=== PATIENT | male | born 1980 | race Two or more races ===

== ENCOUNTER 2020-12-09 11:23 | Emergency (ER) | payer MEDICAID, SELFPAY ==
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
[2020-12-09 11:33] VITALS: BP 132/74; PULSE 78; RESP 18; TEMP 36.5; O2SAT 99; BMI 24.4
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
[2020-12-09] MEDS: Lidocaine 4 % Patch ADH..PATCH 1 PATCH TRANSDERMA (12:25)
[2020-12-09] MEDS: Ketorolac Tromethamine 60 MG/2 ML VIAL IM (12:26)
[2020-12-09] MEDS: Cyclobenzaprine HCl 10 MG TABLET PO (12:26)
== END 2020-12-09 12:50 | disposition home or self-care (01) ==
PROVIDERS: Emergency Provider Emergency Medicine; PCP Internal Medicine
DX: S19.9XXA Unspecified injury of neck, initial encounter (principal); J34.89 Other specified disorders of nose and nasal sinuses; M25.512 Pain in left shoulder; M25.511 Pain in right shoulder; F12.90 Cannabis use, unspecified, uncomplicated; V86.59XA Driver of other special all-terrain or other off-road motor vehicle injured in nontraffic accident, initial encounter; Y93.9 Activity, unspecified; Y92.410 Unspecified street and highway as the place of occurrence of the external cause; Y99.9 Unspecified external cause status; Z79.899 Other long term (current) drug therapy
CPT/HCPCS: 73030; 96372; 99284; J1885

== ENCOUNTER 2022-06-13 17:09 | Emergency (ER) | payer MEDICAID, SELFPAY ==
--- NOTE | ~2022-06-13 | XR_ITS ---
EXAMINATION: XR KNEE, LEFT CLINICAL INFORMATION: Injury. COMPARISON: None TECHNIQUE: 4 views. of the left knee. FINDINGS: Bones and soft tissues are normal. No fracture or joint effusion. Alignment is anatomic. Joint spaces are well maintained. No abnormal soft tissue calcification. XR/XR knee LT 2V IMPRESSION: Normal left knee.
--- NOTE | ~2022-06-13 | XR_ITS ---
EXAMINATION: XR KNEE, RIGHT CLINICAL INFORMATION: Injury. COMPARISON: None TECHNIQUE: Four views of the right knee. FINDINGS: Bones and soft tissues are normal. No fracture or joint effusion. Alignment is anatomic. Joint spaces are well maintained. No abnormal soft tissue calcification. XR/XR knee RT 2V IMPRESSION: Normal right knee.
[2022-06-13 17:14] VITALS: BP 122/63; PULSE 77; RESP 18; TEMP 36.6; O2SAT 99; BMI 23.7
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
[2022-06-13] MEDS: Ibuprofen 600 MG TABLET PO (18:36)
[2022-06-13] MEDS: predniSONE 20 MG TABLET 60 MG PO (18:36)
== END 2022-06-13 18:40 | disposition home or self-care (01) ==
PROVIDERS: Emergency Provider Internal Medicine; PCP Internal Medicine
DX: M17.0 Bilateral primary osteoarthritis of knee (principal); M25.562 Pain in left knee; M25.561 Pain in right knee
CPT/HCPCS: 73560; 99283

== ENCOUNTER 2022-06-22 10:16 | Outpatient (REF) | payer MEDICAID, SELFPAY ==
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
== END 2022-06-22 10:17 | disposition home or self-care (01) ==
LOC: HO.XRAY 10:16
PROVIDERS: PCP Internal Medicine; Visit Provider Registered Nurse
DX: M25.562 Pain in left knee (principal); M25.561 Pain in right knee
CPT/HCPCS: 73590

== ENCOUNTER 2022-07-01 13:45 | Emergency (ER) | payer MEDICAID, SELFPAY ==
--- NOTE | ~2022-07-01 | XR_ITS ---
EXAMINATION: XR KNEE, LEFT CLINICAL INFORMATION: Pain COMPARISON: June 13, 2022 TECHNIQUE: Four views of the left knee. FINDINGS: There is no evidence of acute fracture or dislocation of the left knee. There appears to be a small effusion present. Joint spaces are maintained. There is minor spurring undersurface of the patella. XR/XR knee LT 4V IMPRESSION: No significant bony abnormality of the left knee identified. Small effusion.
[2022-07-01 13:56] VITALS: BP 122/57; PULSE 100; RESP 19; TEMP 36.1; O2SAT 100; BMI 25.4
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
== END 2022-07-01 16:19 | disposition home or self-care (01) ==
PROVIDERS: Emergency Provider Emergency Medicine; PCP Internal Medicine
DX: S83.92XA Sprain of unspecified site of left knee, initial encounter (principal); W01.0XXA Fall on same level from slipping, tripping and stumbling without subsequent striking against object, initial encounter; Y93.9 Activity, unspecified; Y92.9 Unspecified place or not applicable; Y99.9 Unspecified external cause status
CPT/HCPCS: 73564; 99282; 99283

== ENCOUNTER 2022-07-05 12:40 | Outpatient (REF) | payer MEDICAID, SELFPAY ==
--- NOTE | ~2022-07-05 | XR_ITS ---
EXAMINATION: PRE-MRI ORBITS CLINICAL INFORMATION: History of foreign body in eyes COMPARISON: None TECHNIQUE: 3 views of the orbits FINDINGS: There is no visible radiopaque foreign body seen in the orbits. The paranasal sinuses and measures 11 mm and clear. The maxillofacial and visualized skull appears unremarkable. XR/XR pre mri screening IMPRESSION: No radiopaque foreign body seen in the orbits. The paranasal sinuses are clear.
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
== END 2022-07-05 12:41 | disposition home or self-care (01) ==
LOC: HO.MRI 12:40
PROVIDERS: Visit Provider Registered Nurse
DX: M25.562 Pain in left knee (principal); M25.561 Pain in right knee
CPT/HCPCS: 73721

== ENCOUNTER 2022-07-19 09:46 | Outpatient (REF) | payer MEDICAID, SELFPAY ==
--- NOTE | ~2022-07-19 | XR_ITS ---
EXAMINATION: XR KNEE AP STANDING XR KNEE, RIGHT XR KNEE, LEFT CLINICAL INFORMATION: Knee pain COMPARISON: 07/11/2012 TECHNIQUE: AP bilateral standing view of the knees was obtained. [place] view of each knee. FINDINGS: Right knee: No fracture or subluxation. Compartmental joint spaces are maintained. The soft tissues are unremarkable. Left knee: No fracture or subluxation. Compartmental joint spaces are maintained. The soft tissues are unremarkable. XR/XR knee LT 1V IMPRESSION: Normal knees.
--- NOTE | ~2022-07-19 | XR_ITS ---
EXAMINATION: XR KNEE AP STANDING XR KNEE, RIGHT XR KNEE, LEFT CLINICAL INFORMATION: Knee pain COMPARISON: 07/11/2012 TECHNIQUE: AP bilateral standing view of the knees was obtained. [place] view of each knee. FINDINGS: Right knee: No fracture or subluxation. Compartmental joint spaces are maintained. The soft tissues are unremarkable. Left knee: No fracture or subluxation. Compartmental joint spaces are maintained. The soft tissues are unremarkable. XR/XR knee RT 1V IMPRESSION: Normal knees.
--- NOTE | ~2022-07-19 | XR_ITS ---
EXAMINATION: XR KNEE AP STANDING XR KNEE, RIGHT XR KNEE, LEFT CLINICAL INFORMATION: Knee pain COMPARISON: 07/11/2012 TECHNIQUE: AP bilateral standing view of the knees was obtained. [place] view of each knee. FINDINGS: Right knee: No fracture or subluxation. Compartmental joint spaces are maintained. The soft tissues are unremarkable. Left knee: No fracture or subluxation. Compartmental joint spaces are maintained. The soft tissues are unremarkable. XR/XR knee standing BI IMPRESSION: Normal knees.
== END 2022-07-19 09:47 | disposition home or self-care (01) ==
LOC: HO.HOSX 09:46
PROVIDERS: Visit Provider Physician Assistant
DX: S83.241A Other tear of medial meniscus, current injury, right knee, initial encounter (principal); S83.242A Other tear of medial meniscus, current injury, left knee, initial encounter
CPT/HCPCS: 73560; 73565; 99202

== ENCOUNTER 2022-08-10 07:56 | Day surgery (SDC) | payer MEDICAID, SELFPAY ==
--- NOTE | 2022-08-09 11:05 | HO.ANESPROP2 ---
Documented by User: Toyin Mayberry NP 08/09/22 11:06 HPI - Anesthesia Eval Consult details Narrative: 41yo M for Left Knee Arthroscopy [facility] Active Problems Active Problems: All Active Problems (Updated 08/04/22 @ 13:34 by Amy Weber, JAYCE) Tear of medial meniscus of right knee (Acute) Tear of medial meniscus of left knee (Acute) Past Medical History Medical History Anxiety Degenerative arthritis of knee, bilateral Migraine Surgical History Surgical History Hx of hernia repair Surgical history unknown Social History Social History Alcohol intake: current Alcohol intake frequency: holidays/special occasions only Patient Tobacco Use Status: Never used Tobacco Use of substances other than those prescribed or required for medical reasons: Yes Substance Use Type: Marijuana Substance Use Frequency: Daily Are you DNR?: No Advance Directives: No Advance Directives Information Provided: Yes Current occupational status: employed Current occupation: [employer] Allergies Allergy/AdvReac Type Severity Reaction Status Date / Time No Known Allergies Allergy Verified 08/10/22 08:28 Exam Exam Date and Time: August 09, [id number] Assessment and Plan Assessment Anesthesia Assessment: Chart Reviewed Documented by User: Mike Geiger MD 08/10/22 08:21 [facility] Past Medical History Medical History Anxiety Degenerative arthritis of knee, bilateral Migraine Family History Family history of problems with anesthesia: No Surgical History Surgical History Hx of hernia repair Surgical history unknown History of Problems with Anesthesia: No Social History Social History Alcohol intake: current Alcohol intake frequency: holidays/special occasions only Patient Tobacco Use Status: Never used Tobacco Use of substances other than those prescribed or required for medical reasons: Yes Substance Use Type: Marijuana Substance Use Frequency: Daily Are you DNR?: No Advance Directives: No Advance Directives Information Provided: Yes Current occupational status: employed 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 Allergies Allergy/AdvReac Type Severity Reaction Status Date / Time No Known Allergies Allergy Verified 08/10/22 08:28 Exam Airway Mallampati Class: II Neck ROM: Full Heart: rrr Lungs: cta Assessment and Plan Assessment Anesthesia Assessment: Anesthesia Plan Discussed Final Anesthetic Review Family History of Problems with Anesthesia: No History of Problems with Anesthesia: No NPO: Yes ASA Class: II Final Preanesthetic Review: No Changes in Pt Med Stat, Meds/Allgs Chart Reviewed, Consent Obtained/Reviewed and Anes Risks/Benef Reviewed Patient Risk: Low Procedure Risk: Low Anesthetic Plan Anesthetic Plan: GA Disposition: Standard PACU Documented by User: Julia Dupree MD 08/10/22 09:18 [facility] Past Medical History Medical History Anxiety Degenerative arthritis of knee, bilateral Migraine Surgical History Surgical History Hx of hernia repair Surgical history unknown Social History Social History Alcohol intake: current Alcohol intake frequency: holidays/special occasions only Patient Tobacco Use Status: Never used Tobacco Use of substances other than those prescribed or required for medical reasons: Yes Substance Use Type: Marijuana Substance Use Frequency: Daily Are you DNR?: No Advance Directives: No Advance Directives Information Provided: Yes Current occupational status: employed 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
[2022-08-10] VITALS (7 sets, daily range): BP systolic 111–140; BP diastolic 62–82; PULSE 63–88; RESP 14–18; TEMP 36.1–36.6; O2SAT 98–100; BMI 24.4
[2022-08-10] MEDS: Lactated Ringers 1,000 ML 100 ML IVCONT (08:26)
--- NOTE | 2022-08-10 09:38 | MHC.SHP ---
Pre-Procedural Eval Section A Date of Service: 08/10/22 The patient is an INPATIENT: No Changes since office visit: No Cold of Flu in the past 2 weeks, No New Medical Problems, No Changes in Medication and No Patient answered all questions The History & Physical has been completed within 30 days and I have reviewed it.: Yes Section B Chief Complaint: Other tear of medial meniscus, current injury, lef Allergies: Allergies Allergy/AdvReac Type Severity Reaction Status Date / Time No Known Allergies Allergy Verified 08/10/22 08:28 Plan I have reviewed the history and physical and performed a pertinent physical examination on my patient. No changes have occurred unless specified. Time Spent With Patient Time: Total time managing care of this patient today ____ minutes.
--- NOTE | 2022-08-10 10:07 | PM.OP ---
Brief Operative Note Date of Service: 08/10/22 Pre-op diagnosis: Left knee MMT Post-op diagnosis: same Procedure: Left knee partial medial meniscectomy Implants: none Surgeon: Tj Casillas MD Anesthesia: GETA and local Was an Postal Service Mail Processor used for this Procedure?: No Estimated blood loss (mL): 0 Tourniquet time (min): 14 IV fluids (mL): 500 Pathology: none sent Condition: stable Disposition: PACU
[2022-08-10] MEDS: oxyCODONE HCl Immed Release 5 MG TABLET PO (10:44)
--- NOTE | 2022-08-12 15:40 | W.PM.OPN ---
Operative Note Operative Note Date of Service: 08/10/22 Narrative: Date of Service: 08/10/22 Pre-op diagnosis: Left knee MMT Post-op diagnosis: same Procedure: Left knee partial medial meniscectomy Implants: none Surgeon: Tj Casillas MD Anesthesia: GETA and local Was an Cloth Printing Utility Worker used for this Procedure?: No Estimated blood loss (mL): 0 Tourniquet time (min): 14 IV fluids (mL): 500 Pathology: none sent Condition: stable Disposition: PACU Patient was brought to the operating room placed supine on the arthroscopic table and prepped and draped in standard sterile fashion. A time-out was called to identify proper site proper procedure proper surgeon and IV antibiotics per weight were administered. I began by exsanguinating the limb and insufflating tourniquet to 300 mm Hg. Then made a standard anterolateral stab incision. The knee was insufflated with water and 30 degree arthroscope was placed. There was grade 1 fibrillations of the patella but overall suprapatellar pouch was plane and the gutters were clean. I descended into the medial compartment where I made my medial portal under direct visualization. There was obvious of complex tear of the body and posterior horn of the medial meniscus. The root was intact and there was grade 1 changes scattered throughout the medial compartment. I used a combination of biter shaver and cautery to remove unstable portions of the meniscus. Approximately 40% meniscal volume was removed. Once I was happy with this the ACL was examined and found to be intact and the lateral compartment also was without the need for intervention. I then removed all instrumentation and closed the portals with skin glue. 25 mL of 2% Marcaine with epinephrine was injected into the joint and the surrounding soft tissues. Patient was then placed in sterile dressing extubated brought recovery room stable condition. There were no known complications.
== END 2022-08-10 11:44 | disposition home or self-care (01) ==
LOC: HO.SSS 07:57
PROVIDERS: PCP Registered Nurse; Visit Provider Orthopaedic Surgery
PROC: (CPT 29870; principal; 2022-08-10 10:50)
DX: S83.232A Complex tear of medial meniscus, current injury, left knee, initial encounter (principal); M17.0 Bilateral primary osteoarthritis of knee; V17.0XXA Pedal cycle driver injured in collision with fixed or stationary object in nontraffic accident, initial encounter; Y93.55 Activity, bike riding; Y92.9 Unspecified place or not applicable; Y99.8 Other external cause status; Z79.1 Long term (current) use of non-steroidal anti-inflammatories (NSAID); F12.90 Cannabis use, unspecified, uncomplicated
CPT/HCPCS: 29881; J0171; J0690; J1100; J1885; J2250; J2405; J2795; J3010

== ENCOUNTER 2022-08-22 10:00 | Outpatient (RCR) | payer MEDICAID, SELFPAY ==
--- NOTE | 2022-08-19 15:48 | MHC.PT.EP ---
[facility] [place] Office [place] Office [place] Office [address] Ira Abbott [address] [phone] F: [phone] F: [phone] F: [phone] F: [phone] Physical Therapy Plan of Care Date of Evaluation: Date of Surgery: 08/12/22 Diagnosis: L MEDIAL MENISCUS TEAR ON 08/10/22 Assessment: Pt UNDERWENT L KNEE MEDIAL MENISCECTOMY ON 08/12/22. PRESENTS WITH LIMITED L LE ROM AND STRENGTH WITH PAIN AND LIMITED ADLS. GOOD PT CANDIDATE TO ADDRESS THESE ISSUES Frequency and Duration: The patient will be seen 2X/WK X 8 WKS Short Term Goals: 1. INCREASED AWARENESS L KNEE CARE 2. L KNEE ROM 0-120 3. NORMALIZED GT WITHOUT AD Fdc Goals: 1. L KNEE ROM 1-130 2. DECREASED L KNEE PAIN AT LEAST 50% WTH ADLS 3. I HEP WITH DC EX PLAN Treatment Plan: Modalities to reduce pain, spasms and effusion. Manual therapy to restore motion and function. Therapeutic exercise to improve strength and flexibility. Neuromuscular re-education for posture and balance. Therapeutic activities to return to functional activities of daily living. Electronically signed by: JOHN HERRERA PT Please sign and return to therapist. Thank you for your referral.
--- NOTE | 2022-09-13 13:05 | MHC.PT.DC ---
[facility] [place] Office [place] Office [place] Office [address] Ira Abbott [address] [phone] F: [phone] F: [phone] F: [phone] F: [phone] Physical Therapy Discharge Report Diagnosis: L MEDIAL MENISCUS TEAR ON 08/10/22 Date of Surgery: 08/12/22 Date of Evaluation: 08/19/22 Date of Discharge: 09/13/22 Treatments to Date: 2 Cancellations to Date: No Shows to Date: Discharge Status: Patient Elected to Stop Discharge Summary: Pt SEEN FOR INIT EVAL AND 1 FU VISIT. Pt THEN NO SHOWED X 5 SESSIONS. OF NOTE, HAD ORTHO APPT SAME DATE LAST PT SESSION (08/22). WHEN LOOKED AT OFFICE VISIT NOTE, Pt WAS INST TO CONT WITH A FEW MORE SESSION OF PT AND CAN DC CRUTCHES. HE DID NOT COME IN FOR ANY MORE SESSIONS Electronically signed by: JOHN HERRERA PT Please sign and return to therapist. Thank you for your referral.
== END 2022-09-13 13:05 | disposition home or self-care (01) ==
LOC: HO.PT 10:00
PROVIDERS: PCP Internal Medicine; Visit Provider Physician Assistant
DX: S83.242A Other tear of medial meniscus, current injury, left knee, initial encounter (principal)
CPT/HCPCS: 97110; 97116; 97161; 97535

== ENCOUNTER → 2022-08-22 10:50 | Outpatient (BNVA) | payer MEDICAID, SELFPAY | PROVIDERS: PCP Registered Nurse; Visit Provider Physician Assistant ==

== ENCOUNTER 2022-09-27 12:29 | Emergency (ER) | payer MEDICAID, SELFPAY ==
[2022-09-27 12:49] VITALS: BP 113/69; PULSE 97; RESP 18; TEMP 36.8; O2SAT 99; BMI 24.4
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
== END 2022-09-27 13:55 | disposition left against medical advice (07) ==
PROVIDERS: Emergency Provider Emergency Medicine; PCP Internal Medicine
DX: M79.605 Pain in left leg (principal)
CPT/HCPCS: 99281

== ENCOUNTER 2022-09-28 07:46 | Emergency (ER) | payer MEDICAID, SELFPAY ==
--- NOTE | ~2022-09-28 | XR_ITS ---
EXAMINATION: XR TIBIA AND FIBULA, LEFT CLINICAL INFORMATION: Crush injury pain COMPARISON: Left knee radiograph from 07/19/2022 TECHNIQUE: AP and lateral views of the left tibia and fibula were obtained. FINDINGS: No acute visible fracture or dislocation. Joint spaces and alignment are maintained. Mild soft tissue swelling along the lateral aspects of the fibula. XR/XR tibia fibula LT 2V IMPRESSION: 1. No acute visible fracture or dislocation. 2. Mild soft tissue swelling along the lateral aspects of the fibula.
[2022-09-28 07:49] VITALS: BP 126/69; PULSE 90; RESP 18; TEMP 37; O2SAT 97; BMI 24.4
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
== END 2022-09-28 10:09 | disposition home or self-care (01) ==
PROVIDERS: Emergency Provider Student in an Organized Health Care Education/Training Program; PCP Internal Medicine
DX: S80.12XA Contusion of left lower leg, initial encounter (principal); V28.09XA Other motorcycle driver injured in noncollision transport accident in nontraffic accident, initial encounter; Y93.89 Activity, other specified; Y92.9 Unspecified place or not applicable; Y99.9 Unspecified external cause status
CPT/HCPCS: 73590; 99282; 99283

== ENCOUNTER → 2022-10-20 13:04 | Outpatient (BNVA) | payer MEDICAID, SELFPAY | PROVIDERS: PCP Internal Medicine; Visit Provider Physician Assistant | DX: M25.561 Pain in right knee (principal); M17.0 Bilateral primary osteoarthritis of knee; S83.241A Other tear of medial meniscus, current injury, right knee, initial encounter; X58.XXXA Exposure to other specified factors, initial encounter; Y93.9 Activity, unspecified; Y92.9 Unspecified place or not applicable; Y99.8 Other external cause status | CPT/HCPCS: 99212 ==

== ENCOUNTER 2022-11-09 07:42 | Day surgery (SDC) | payer MEDICAID, SELFPAY ==
--- NOTE | 2022-11-08 09:44 | HO.ANESPROP2 ---
Documented by User: Toyin Mayberry NP 11/08/22 09:44 HPI - Anesthesia Eval Consult details Narrative: 41yo M for Right Knee Arthroscopy PMFSH Active Problems Active Problems: All Active Problems (Updated 10/01/22 @ 00:08 by Emir Monterroso) Tear of medial meniscus of right knee (Acute) Tear of medial meniscus of left knee (Acute) Past Medical History Medical History Anxiety Degenerative arthritis of knee, bilateral Migraine Family History Family history of problems with anesthesia: No Surgical History Surgical History (Updated 11/09/22 @ 08:32 by Mandi Grimm) Hx of arthroscopic knee surgery Hx of hernia repair History of Problems with Anesthesia: No Social History Social History Alcohol intake: current Alcohol intake frequency: does not drink Patient Tobacco Use Status: Never used Tobacco Use of substances other than those prescribed or required for medical reasons: Yes Substance Use Type: Marijuana Substance Use Frequency: Daily Are you DNR?: No Advance Directives: No Advance Directives Information Provided: Yes Current occupational status: employed Current occupation: [employer] Allergies Allergy/AdvReac Type Severity Reaction Status Date / Time No Known Allergies Allergy Verified 11/09/22 08:26 Exam Exam Date and Time: November 08, [id number] Assessment and Plan Assessment Anesthesia Assessment: Chart Reviewed Final Anesthetic Review Family History of Problems with Anesthesia: No History of Problems with Anesthesia: No Documented by User: Apolinar Aguirre MD 11/09/22 15:01 PMF Past Medical History Medical History Anxiety Degenerative arthritis of knee, bilateral Migraine Functional capacity: independent ambulation Surgical History Surgical History (Updated 11/09/22 @ 08:32 by Mandi Grimm) Hx of arthroscopic knee surgery Hx of hernia repair Social History Social History Alcohol intake: current Alcohol intake frequency: does not drink Patient Tobacco Use Status: Never used Tobacco Use of substances other than those prescribed or required for medical reasons: Yes Substance Use Type: Marijuana Substance Use Frequency: Daily Are you DNR?: No Advance Directives: No Advance Directives Information Provided: Yes Current occupational status: employed Current occupation: [employer] Allergies Allergy/AdvReac Type Severity Reaction Status Date / Time No Known Allergies Allergy Verified 11/09/22 08:26 Exam Airway Mallampati Class: III Neck ROM: Full Loose/Missing/Broken Teeth: Yes (upper front tooth chipped , poor dentition ) Assessment and Plan Final Anesthetic Review NPO: Yes ASA Class: II Final Preanesthetic Review: Meds/Allgs Chart Reviewed, Consent Obtained/Reviewed and Anes Risks/Benef Reviewed Patient Risk: Intermediate Procedure Risk: Intermediate Anesthetic Plan Anesthetic Plan: GA and Agree w/ Assess. and Plan Disposition: Standard PACU
[2022-11-09] VITALS (7 sets, daily range): BP systolic 99–110; BP diastolic 45–70; PULSE 57–67; RESP 16–18; TEMP 36.1–36.3; O2SAT 95–99; BMI 25.1
--- NOTE | 2022-11-09 08:55 | MHC.SHP ---
Pre-Procedural Eval Section A Date of Service: 11/09/22 The patient is an INPATIENT: No Changes since office visit: No Cold of Flu in the past 2 weeks, No New Medical Problems, No Changes in Medication and No Patient answered all questions The History & Physical has been completed within 30 days and I have reviewed it.: Yes Section B Chief Complaint: Displaced spiral fracture of shaft of right tibia Allergies: Allergies Allergy/AdvReac Type Severity Reaction Status Date / Time No Known Allergies Allergy Verified 11/09/22 08:26 Plan I have reviewed the history and physical and performed a pertinent physical examination on my patient. No changes have occurred unless specified. Time Spent With Patient Time: Total time managing care of this patient today ____ minutes.
[2022-11-09] MEDS: Lactated Ringers 1,000 ML 100 ML IVCONT (08:56)
--- NOTE | 2022-11-09 14:52 | P.BOP_ITS ---
Brief Operative Note Date of Service: 11/09/22 Pre-op diagnosis: Right knee MMT Post-op diagnosis: same Procedure: Partial MM right knee Surgeon: Tj Casillas MD Anesthesia: GETA and local Was an Specialized Language Instructor used for this Procedure?: No Estimated blood loss (mL): 5 Tourniquet time (min): 16 IV fluids (mL): 500 Pathology: none sent Condition: stable Disposition: PACU
--- NOTE | 2022-11-13 10:11 | P.OP_ITS ---
Operative Note Operative Note Date of Service: 11/13/22 Narrative: Date of Service: 11/09/22 Pre-op diagnosis: Right knee MMT Post-op diagnosis: same Procedure: Partial MM right knee Surgeon: Tj Casillas MD Anesthesia: GETA and local Was an Community Placement Worker used for this Procedure?: No Estimated blood loss (mL): 5 Tourniquet time (min): 16 IV fluids (mL): 500 Pathology: none sent Condition: stable Disposition: PACU Procedure in detail: Patient was brought to the operating room placed supine on the arthroscopic table and prepped and draped in standard sterile fashion. A time-out was called to identify proper site proper procedure proper surgeon and IV antibiotics per weight were administered. I began by exsanguinating the limb and insufflating tourniquet to 300 mm Hg. Then made a standard anterolateral stab incision. The knee was insufflated with water and 30 degree arthroscope was placed. There was grade 1 fibrillations of the patella but overall suprapatellar pouch was plane and the gutters were clean. I descended into the medial compartment where I made my medial portal under direct visualization. There was obvious of complex tear of the body and posterior horn of the medial meniscus. The root was intact and there were grade 1 changes with scattered grade 2 changes throughout the medial compartment. I used a combination of biter shaver and cautery to remove unstable portions of the medial meniscus. Approximately 30% of the meniscal volume was removed. Once I was satisfied with this the ACL was examined and found to be intact and the lateral compartment also was without the need for intervention. I then removed all instrumentation and closed the po rtals with skin glue. 25 mL of 2% Marcaine with epinephrine was injected into the joint and the surrounding soft tissues. Patient was then placed in sterile dressing extubated brought recovery room stable condition. There were no known complications.
== END 2022-11-09 13:10 | disposition home or self-care (01) ==
LOC: HO.SSS 07:42
PROVIDERS: PCP Internal Medicine; Visit Provider Orthopaedic Surgery
PROC: (CPT 29870; principal; 2022-11-09 10:20)
DX: S83.231A Complex tear of medial meniscus, current injury, right knee, initial encounter (principal); X58.XXXA Exposure to other specified factors, initial encounter; Y93.9 Activity, unspecified; Y92.9 Unspecified place or not applicable; Y99.8 Other external cause status; M17.0 Bilateral primary osteoarthritis of knee; G43.909 Migraine, unspecified, not intractable, without status migrainosus; F41.1 Generalized anxiety disorder; F12.90 Cannabis use, unspecified, uncomplicated; Z79.1 Long term (current) use of non-steroidal anti-inflammatories (NSAID); Z79.899 Other long term (current) drug therapy
CPT/HCPCS: 29881; J0171; J0690; J1100; J1170; J2250; J2795

== ENCOUNTER → 2022-11-14 09:40 | Outpatient (BNVA) | payer MEDICAID, SELFPAY | PROVIDERS: PCP Internal Medicine; Visit Provider Physician Assistant | DX: S83.241D Other tear of medial meniscus, current injury, right knee, subsequent encounter (principal) | CPT/HCPCS: 99212 ==

== ENCOUNTER 2022-12-01 12:00 | Outpatient (RCR) | payer MEDICAID, SELFPAY ==
--- NOTE | 2022-11-24 11:55 | MHC.PT.EP ---
[facility] [place] Office [place] [facility] [place] [facility] [address] Ira Abbott [address] [phone] F: [phone] F: [phone] F: [phone] F: [phone] Physical Therapy Plan of Care Date of Evaluation: Date of Surgery: 11/09/22 Diagnosis: R Knee 11/09/22 R medial menisectomy (30% removed per op note) Assessment: 41 y/o male s/p R medial meniscectomy (30% removed) on 11/09/22. Of note, he also underwent L meniscectomy 07/2022. 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 Examination shows decreased R knee AROM 0-2-104, decreased quad strength, decreased LE strength, impaired gait pattern, and pain. Recommend PT 2x/week for 5 weeks (however pt reports 1x/week is better) to address impairments, implement HEP, and optimize functional mobility Frequency and Duration: The patient will be seen 1x/week for 5 weeks Short Term Goals: 3 weeks COmpliant with HEP Improve R knee AROM to 0-125 Pt will ambulate without assistive device. Mcc Goals: 5 weeks I with HEP and self management of sx Pt will demonstrate >4/5 R knee strength to optimize functional mobility Pt will demonstrate step through pattern on stairs Treatment Plan: Modalities to reduce pain, spasms and effusion. Manual therapy to restore motion and function. Therapeutic exercise to improve strength and flexibility. Neuromuscular re-education for posture and balance. Therapeutic activities to return to functional activities of daily living. Electronically signed by: Adriana Landrum PT Please sign and return to therapist. Thank you for your referral.
--- NOTE | 2023-01-12 14:37 | MHC.PT.DC ---
[facility] [place] Office [place] [facility] [place] Office [address] Ira Abbott [address] [phone] F: [phone] F: [phone] F: [phone] F: [phone] Physical Therapy Discharge Report Diagnosis: R Knee 11/09/22 R medial menisectomy (30% removed per op note) Date of Surgery: 11/09/22 Date of Evaluation: 11/24/22 Date of Discharge: 01/12/23 Treatments to Date: 2 Cancellations to Date: 0 No Shows to Date: 2 Discharge Status: Visit Non-compliance Discharge Summary: D/c secondary to noncompliance with scheduling policy and 2 consecutive no show visits. Electronically signed by: Adriana Spain PT Please sign and return to therapist. Thank you for your referral.
== END 2023-01-12 14:37 | disposition home or self-care (01) ==
LOC: HO.PT 12:00
PROVIDERS: PCP Internal Medicine; Visit Provider Orthopaedic Surgery
DX: S83.241D Other tear of medial meniscus, current injury, right knee, subsequent encounter (principal)
CPT/HCPCS: 97110; 97161

== ENCOUNTER 2022-12-15 09:03 | Outpatient (AMB) | payer MEDICAID, SELFPAY ==
[2022-12-15 09:07] VITALS: BMI 21.4
--- NOTE | 2022-12-15 09:07 | A.OFFVIS_ITS ---
Intake Vital Signs 12/15/22 09:07 Height 6 ft Weight 158 lb BMI 21.4 Intake Visit Reasons: Post Op - RT Knee , 11/09/2022 NE Intake Note: Norberto is a 41 year old male who presents today for a post op appointment for his right knee 11/09/22 NE. Patient reports having pain when getting up from a sitting position, using stairs and he states that his right knee locks daily when standing straight. Allergies No Known Allergies Allergy (Verified 12/15/22 09:09) HPI Post Op - RT Knee , 11/09/2022 NE HPI Details 41-year-old male who presents in the office today 5 weeks status post right knee partial medial meniscectomy, which was performed on 11/09/[address] Casillas. The patient reports having pain with getting up from a seated position and using stairs. He claims the right knee is locking daily when he stands up straight. He reports he discontinued participating in physical therapy due to different providers, each telling him something different to do. 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 Slight tenderness to palpation along the medial and lateral joint lines, more so over the medial joint line. NVI. Psych Mental Status: mental status grossly normal Assessment & Plan Assessment & Plan (1) Tear of medial meniscus of right knee: Comment: Right knee partial medial meniscectomy 11/09/2022 NE Code(s): S83.241A - Other tear of medial meniscus, current injury, right knee, initial encounter Plan Mr. Mc is a 41-year-old male who presents in the office today 5 weeks status post right knee partial medial meniscectomy, which was performed on 11/09/[address] Casillas. The patient reports having pain with getting up from a seated position and using stairs. He claims the right knee is locking daily when he stands up straight. He reports he discontinued participating in physical therapy due to different providers, each telling him something different to do. The patient reports he would like to explore more physical therapy offices at this time. He reports he has attended the [facility] facilities and they are not a fit for him. I encouraged him to continue to work with physical therapy. He demonstrates understanding. I sent a new prescription for celebrex 200 mg PO BID and a refill for lidocaine patches Q24H PRN. Follow up will be in 4-6 weeks, or sooner if needed. Medications: New celecoxib (Celebrex) 200 mg PO BID 60 caps 0RF 30 days Refilled lidocaine 4% may leave on for up to 12 hrs 1 patch topical Q24H PRN 10 ea 0RF pain Patient Instructions: Scribed for Rowena Betancourt PA-C by Bee Dubois medical dermatologist, on 12/15/2022 at 9:09 am, EST. Your attestation Coding Level of Care Code Global (02225) Diagnoses Tear of medial meniscus of right knee S83.241A
== END 2022-12-15 09:56 | disposition home or self-care (01) ==
PROVIDERS: PCP Internal Medicine; Visit Provider Physician Assistant
DX: S83.241A Other tear of medial meniscus, current injury, right knee, initial encounter (principal)
CPT/HCPCS: 99024

== ENCOUNTER → 2022-12-15 09:03 | Outpatient (BNVA) | payer MEDICAID, SELFPAY | PROVIDERS: PCP Internal Medicine; Visit Provider Physician Assistant ==

== ENCOUNTER 2023-01-26 13:00 | Outpatient (AMB) | payer MEDICAID, SELFPAY ==
--- NOTE | 2023-01-26 13:08 | A.OFFVIS_ITS ---
Intake Vital Signs 01/26/23 13:10 Height 6 ft Weight 158 lb BMI 21.4 Intake Visit Reasons: Post Op - RT Knee , 11/09/2022 NE Intake Note: Norberto is a 41 year old male who presents today for a post op appointment for his right knee 11/09/22 NE. States he is still having pain same as before surgery. Also states his left knee has started to hurt him possible due to over compensating. Allergies No Known Allergies Allergy (Verified 01/26/23 13:10) HPI Post Op - RT Knee , 11/09/2022 NE HPI Details 42-year-old male who presents in the office today 2 months status post right knee partial medial meniscectomy, which was performed on 11/09/[address] Casillas. The patient reports his pain is the same today as it was prior to surgery. Patient reports pain in the left knee due to over compensation. 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 Slight tenderness to palpation along the medial and lateral joint lines, more so over the medial joint line. NVI. Assessment & Plan Assessment & Plan (1) Tear of medial meniscus of right knee: Comment: Right knee partial medial meniscectomy 11/09/2022 NE Code(s): S83.241A - Other tear of medial meniscus, current injury, right knee, initial encounter Plan Mr. Mc is a 42-year-old male who presents in the office today 2 months status post right knee partial medial meniscectomy, which was performed on 11/09/[address] Casillas. The patient reports his pain is the same today as it was prior to surgery. Patient reports pain in the left knee due to over compensation. I sent into a prescription for Diclofenac to the pharmacy while in the office today. I reinforced the importance of physical therapy. He would like to attend at our facility. He was given a return to work note stating he was out from 11/09/2022 until he returns to light duty. Follow up will be in 4-6 weeks, or sooner if needed. Orders: Orders PT Evaluation and Treatment Today S83.241A - Other tear of medial meniscus, current injury, right knee, initial encounter Medications: New diclofenac sodium 75 mg PO BID PRN 60 tabs 0RF pain Patient Instructions: Scribed for Rowena Betancourt PA-C by Bee Dubois medical detailist, on 01/26/2023 at 1:04 pm, EST. Coding Level of Care Code Global (91044) Diagnoses Tear of medial meniscus of right knee S83.241A
[2023-01-26 13:10] VITALS: BMI 21.4
== END 2023-01-26 14:11 | disposition home or self-care (01) ==
PROVIDERS: PCP Internal Medicine; Visit Provider Physician Assistant
DX: S83.241A Other tear of medial meniscus, current injury, right knee, initial encounter (principal)
CPT/HCPCS: 99024

== ENCOUNTER → 2023-01-26 13:00 | Outpatient (BNVA) | payer MEDICAID, SELFPAY | PROVIDERS: PCP Internal Medicine; Visit Provider Physician Assistant ==

== ENCOUNTER 2023-03-02 10:53 | Outpatient (AMB) | payer MEDICAID, SELFPAY ==
--- NOTE | 2023-03-02 10:55 | MHC.OFFVIS ---
Intake Vital Signs 03/02/23 10:59 Height 6 ft Weight 158 lb BMI 21.4 Intake Visit Reasons: Post Op - RT Knee , 11/09/2022 NE Intake Note: Norberto is a 41 year old male who presents today for a post op appointment for his right knee 11/09/22 NE. Patient states he is doing well, having some discomfort when squatting down when working. No other concerns for today. Allergies No Known Allergies Allergy (Verified 03/02/23 10:56) HPI Post Op - RT Knee , 11/09/2022 NE HPI Details 42-year-old male who presents in the office today 4 months status post right knee partial medial meniscectomy, which was performed on 11/09/[address] Casillas. The patient reports he is doing well. He states he has some discomfort when squatting down while working. He has no other concerns today. 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 No signs of infection. Full ROM. NVI. Assessment & Plan Assessment & Plan (1) Tear of medial meniscus of right knee: Comment: Right knee partial medial meniscectomy 11/09/2022 NE Code(s): S83.241A - Other tear of medial meniscus, current injury, right knee, initial encounter Qualifiers: Encounter type: subsequent encounter Meniscus tear of knee type: unspecified type Tear current or old: unspecified Qualified Code(s): S83.241D - Other tear of medial meniscus, current injury, right knee, subsequent encounter Plan Mr. Mc is a 42-year-old male who presents in the office today 4 months status post right knee partial medial meniscectomy, which was performed on 11/09/[address] Casillas. The patient reports he is doing well. He states he has some discomfort when squatting down while working. He has no other concerns today. The patient will return to normal activities as tolerated. Follow up will be PRN, or sooner if needed. Patient Instructions: Scribed for Rowena Betancourt PA-C by Bee Dubois medical recruiter, on 03/02/2023 at 10:59 am, EST. Coding Level of Care Code Est Pt Level 3 (83363) Diagnoses Tear of medial meniscus of right knee, unspecified tear type, unspecified whether old or current tear, subsequent encounter S83.241D Encounter type: subsequent encounter Meniscus tear of knee type: unspecified type Tear current or old: unspecified
[2023-03-02 10:59] VITALS: BMI 21.4
== END 2023-03-02 11:02 | disposition home or self-care (01) ==
PROVIDERS: PCP Internal Medicine; Visit Provider Physician Assistant
DX: S83.241D Other tear of medial meniscus, current injury, right knee, subsequent encounter (principal)
CPT/HCPCS: 99213

== ENCOUNTER → 2023-03-02 10:53 | Outpatient (BNVA) | payer MEDICAID, SELFPAY | PROVIDERS: PCP Internal Medicine; Visit Provider Physician Assistant | DX: S83.241D Other tear of medial meniscus, current injury, right knee, subsequent encounter (principal) | CPT/HCPCS: 99212 ==

== ENCOUNTER 2024-03-23 07:39 | Emergency (ER) | payer MEDICAID, SELFPAY ==
[2024-03-23 07:42] VITALS: BP 98/61; PULSE 99; RESP 18; TEMP 36.9; O2SAT 100; BMI 23.7
[2024-03-23 07:52] VITALS: BP 113/76; PULSE 93; RESP 18; TEMP 36.6; O2SAT 98
--- NOTE | 2024-03-23 08:06 | ED.LOWEXIN ---
HPI - Extremity Injury (Lower) General Chief Complaint: Extremity Injury, Lower Stated Complaint: l knee pain Time Seen by Provider: 03/23/24 07:46 Source: patient and family (Araceli) Mode of arrival: ambulatory History of Present Illness ED Provider: Dr. Jimmie Guevara HPI Narrative: 43-year-old male with a history bilateral degenerative arthritis of the knees, migraines, anxiety, bilateral meniscal tear status post repair by Dr. Casilals who presents emergency department for evaluation of 3 days of left knee pain. Patient does not recount any injury. 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 He states that the pain has gotten progressively worse to the point where he was not able to straighten his knee secondary to pain. He denied any systemic symptoms such as fever, chills, fatigue. He was seen at an urgent care clinic yesterday and started on methylprednisolone and tizanidine. The patient states that he took 1 dose of the methylprednisolone but did not take the muscle relaxant. He states that today his pain is significantly worse, he was having difficulty straightening his knee therefore he came to the emergency department for evaluation. Related Data Previous Rx's ?Medication ?Instructions ?Recorded ibuprofen 600 mg tablet 600 mg PO Q6H PRN pain #20 tabs 07/01/22 naproxen 500 mg tablet 500 mg PO Q8H PRN pain #90 tabs 11/14/22 celecoxib 200 mg capsule 200 mg PO BID #60 caps 01/23/23 diclofenac sodium 75 mg 75 mg PO BID PRN pain #60 tabs 01/26/23 tablet,delayed release oxycodone 5 mg tablet 5 mg PO Q6H PRN pain #10 tabs 03/23/24 Allergies Allergy/AdvReac Type Severity Reaction Status Date / Time No Known Allergies Allergy Verified 03/23/24 07:44 Review of Systems Review of Systems: Yes all other systems are reviewed and are negative PMFSH Past Medical History Medical History Anxiety Degenerative arthritis of knee, bilateral Migraine Surgical History Hx of arthroscopic knee surgery Hx of hernia repair Social History Social History Alcohol intake: current Alcohol intake frequency: does not drink Patient Tobacco Use Status: Never used Tobacco Substance Use Type: Marijuana Advance Directives: No Advance Directives Information Provided: Yes Current occupational status: employed 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 Lower extremity exam: Patient keeps his left knee flex and his right leg is straight lying on the stretcher. Patient has no increased warmth, erythema or joint effusion of either knee. The patient has difficulty actively straight needs knee but I am able to passively straighten in his left knee to 180 degrees. The patient has no increased pain with lateral or medial stressor of the knee. Negative draw sign. Patient has no significant tenderness palpation over the medial lateral collateral ligaments. Medical Decision Making Medical Decision Making MDM Narrative: 43-year-old male with a history of bilateral degenerative arthritis both knees, bilateral meniscal repair, migraines who presents emergency department for evaluation of 3 days of left knee pain which is gotten progressively worse to the point where he was not able to straighten his knee today. Patient does not recount any injury or trauma. He denied any systemic symptoms. He was seen yesterday at an urgent care clinic and started on methylprednisolone and tizanidine with no relief his pain. Physical examination did reveal limited active range of motion of his left knee secondary to pain but full passive range of motion with no significant pain with mediolateral stressor negative drawer sign. Differential diagnosis: ?Includes but is not limited to left knee strain/sprain, inflammatory arthritis, septic arthritis, meniscal tear Course: Patient's physical examination at this time did not reveal any specific findings to suggest infectious process. I suspect that the patient injured his knee several days ago now has an inflammatory process. Patient was advised to continue taking his methylprednisolone and tizanidine. He was given Tylenol 975 mg and oxycodone 10 mg orally here in the emergency department for his pain. He was placed in a knee immobilizer and given crutches. He was advised to use these for 4 days. He was advised to ice his knee for 15 minutes 4 to 6 times a day for the next several days. Patient was advised to take Tylenol for his pain and for pain not relieved by Tylenol, methylprednisolone and tizanidine he was advised to take oxycodone 5 mg every 6 hours as needed. He was given printed and verbal instructions and discharged home. He was given a work note and advised to follow-up with Dr. Casillas for re-evaluation. Admission/Observation Consideration of admission/observation: Escalation of care including admission/observation considered (No) Independent Historian Clinical information obtained from an independent historian. History obtained from or confirmed by: Spouse External Record Review External record reviewed: Office record and Other ([place] patient prescription monitoring program) Prescription Management I considered prescription management with: Other (Pain medications-oxycodone) Discharge Plan Discharge Clinical Impression: Left knee sprain, Acute pain of left knee Patient Disposition: Home, Self-Care Instructions: Knee Sprain (ED) Additional Instructions: At this time I do not think that you have an infection of your knee joint. Your symptoms are more consistent with a sprain of the ligaments of your knee. Wear the knee brace for 4 days, use the crutches to help relieve with a weight on your left knee. Apply ice for 15 minutes 4 to 6 times a day for the next 3 days to help reduce the swelling and pain in your knee. Continue taking the methylprednisolone as prescribed by the urgent care. While your taking this medication do not take any other over the counter nonsteroidal anti-inflammatory drugs such as Motrin, Advil, Aleve, ibuprofen, naproxen. Take the muscle relaxant, tizanidine once at night to help relieve the pain and spasm. Take Tylenol (acetaminophen) 500 mg pills, 2 pills every 6 hours as needed for pain. For pain not relieved by the above medications, take Tylenol take oxycodone 5 mg pills, 1 pill every 6 hours as needed for pain. Do not drive or work while taking this medication since they can cause sleepiness. Oxycodone is a narcotic medication that can be addicting. If you are concerned about addiction you can ask the pharmacist for less pills or do not get this prescription filled. Follow-up with Dr. Casillas in 1-2 weeks if your pain is not better. Please return to the emergency department if your symptoms get worse or if you develop any symptoms that are concerning to you. Please see the work note Prescriptions: New oxycodone 5 mg tablet 5 mg PO Q6H PRN (Reason: pain) Qty: 10 0RF Rx Instructions: Patient may request partial refill; Partial Fill upon patient request. No Action celecoxib 200 mg capsule 200 mg PO BID Qty: 60 0RF ibuprofen 600 mg tablet 600 mg PO Q6H PRN (Reason: pain) Qty: 20 0RF diclofenac sodium 75 mg tablet,delayed release (DR/EC) 75 mg PO BID PRN (Reason: pain) Qty: 60 0RF naproxen 500 mg tablet 500 mg PO Q8H PRN (Reason: pain) Qty: 90 0RF Referrals: Tj Casillas MD [Physician] - 2 weeks (Left knee pain, difficulty straightening of the need x3 days, suspect knee sprain-same knee that had a meniscal tear repaired in the past) Stand Alone Forms: Work/School Release Print Language: Barb[place]
[2024-03-23] MEDS: oxyCODONE HCl Immed Release 5 MG TABLET 10 MG PO (08:14)
[2024-03-23] MEDS: Acetaminophen 325 MG TABLET 975 MG PO (08:14)
== END 2024-03-23 08:24 | disposition home or self-care (01) ==
PROVIDERS: Emergency Provider Emergency Medicine Emergency Medical Services; PCP Internal Medicine
DX: M25.562 Pain in left knee (principal); S83.92XA Sprain of unspecified site of left knee, initial encounter; X58.XXXA Exposure to other specified factors, initial encounter; Y93.9 Activity, unspecified; Y92.9 Unspecified place or not applicable; Y99.9 Unspecified external cause status
CPT/HCPCS: 99283

== ENCOUNTER 2024-03-27 07:36 | Emergency (ER) | payer MEDICAID, SELFPAY ==
--- NOTE | ~2024-03-27 | CT_ITS ---
EXAMINATION: CT LUMBAR SPINE WITHOUT CONTRAST CLINICAL INFORMATION: Worsening low back pain COMPARISON: None available. TECHNIQUE: Axial sections performed in bone and soft tissue windows without IV contrast enhancement. Sagittal and coronal reconstructions performed. This CT examination was performed using dose optimization techniques as appropriate, variously including the following: *Automated exposure control *Adjustment of mA and/or kV according to patient size (this includes techniques or standardized protocols for targeted exams where dose is matched to indication/reason for exam; i.e. extremities or head) *Use of iterative reconstruction technique DLP; 370 mGy-cm FINDINGS: No CT evidence for acute lumbar compression fracture. Disc spaces appear to be maintained. Minimal spondylitic change. Transverse and spinous processes intact. Small sclerotic foci of the sacrum likely related to small bone islands. There is mild facet arthrosis. Nephrolith of the left kidney measuring 1400 Hounsfield units and 11 mm maximal dimension. There is disc bulging at the L4-5 level with evidence of contact on the left L4 nerve root. Minimal disc bulge at L5-S1 level without significant central stenosis. CT/CT lumbar spine wo IV con IMPRESSION: No acute lumbar compression fracture. Minimal spondylitic change. Mild facet arthrosis. Disc bulge at the L4-5 level with some contact on the left L4 nerve root. Normal disc bulge at the L5-S1 level without significant stenosis. MR examination is outpatient may be helpful toward further clarification. Nonobstructing stone of the left kidney with dimensions as noted above. Other incidental findings as described. Electronically signed by: Bret Andre MD 03/27/2024 09:24 AM EDT
[2024-03-27 07:48] VITALS: BP 109/64; PULSE 70; RESP 16; TEMP 37; O2SAT 98; BMI 23.7
--- NOTE | 2024-03-27 08:13 | ED_ITS ---
HPI - General Adult General Chief complaint: Extremity Problem Stated complaint: lower back pain into leg Time Seen by Provider: 03/27/24 08:13 Source: patient Mode of arrival: wheelchair Limitations: no limitations History of Present Illness ED Provider: Camille Collins PA-C HPI narrative: Patient is a 43 year old assigned male at with a history of bilateral meniscus tears presenting to the emergency department today with continued left knee pain and new low back pain. Patient states that he has had pain in his left knee since 03/23/2024. Patient states that he was seen for that and placed in an immobilizer and given crutches. Patient states that he now has left sided low back pain. Patient states that he cannot straighten his left knee or his low back without having severe pain. Patient states that for a brief moment the pain extended into his right upper leg as well. Patient states that the orthopedic office told him they can't get him in until April. Patient denies any dizziness, lightheadedness, abdominal pain, nausea, vomiting, fever, chills, blurry vision, double vision, loss of vision, chest pain, difficulty breathing, shortness of breath, night sweats, pain with urination, increased urinary frequency, increased urinary urgency, blood in his urine or stool, syncope or a near syncopal episode, recent trauma or falls, bowel incontinence, bladder incontinence, or any other complaints at this time. Relieving factors: none Exacerbating factors: none Treatments prior to arrival: none Related Data Previous Rx's ?Medication ?Instructions ?Recorded ibuprofen 600 mg tablet 600 mg PO Q6H PRN pain #20 tabs 07/01/22 naproxen 500 mg tablet 500 mg PO Q8H PRN pain #90 tabs 11/14/22 celecoxib 200 mg capsule 200 mg PO BID #60 caps 01/23/23 diclofenac sodium 75 mg 75 mg PO BID PRN pain #60 tabs 01/26/23 tablet,delayed release oxycodone 5 mg tablet 5 mg PO Q6H PRN pain #10 tabs 03/23/24 diazepam 5 mg tablet (Valium) 5 mg PO Q8H PRN breakthrough pain 03/27/24 #3 tabs prednisone 20 mg tablet See Rx Instructions .Route 03/27/24 .COMPLEX 12 days #26 tabs Allergies Allergy/AdvReac Type Severity Reaction Status Date / Time No Known Allergies Allergy Verified 03/27/24 07:51 Review of Systems 2 Constitutional: Constitutional: Reports no additional constitutional complaints, Denies chills, Denies fever(s) and Denies night sweats Eyes: Eyes: Reports no additional eye complaints, Denies blurry vision, Denies change in vision, Denies diplopia, Denies eye discharge, Denies loss of vision and Denies eye pain ENT: Denies dizziness Cardiovascular: Cardiovascular: Reports no additional cardiovascular complaints, Denies chest pain, Denies lightheadedness, Denies Loss of Consciousness and Denies dyspnea Respiratory: Respiratory: Reports no additional respiratory complaints and Denies dyspnea Gastrointestinal: Gastrointestinal: Reports no additional gastrointestinal complaints, Denies abdominal pain, Denies melena, Denies hematochezia, Denies change in bowel habits and Denies change in stool character Genitourinary: Genitourinary: Reports no additional male genitourinary complaints, Denies hematuria, Denies oliguria, Denies difficulty urinating, Denies dysuria, Denies urinary frequency, Denies urinary hesitancy, Denies urinary incontinence and Denies urinary urgency Musculoskeletal: Musculoskeletal: Reports no additional musculoskeletal complaints, Denies numbness and Denies tingling Comments: left knee pain low back pain Neurologic: Denies dizziness, Denies loss of vision, Denies numbness and Denies tingling Psychiatric: Psychiatric: Reports no additional psychiatric complaints Endocrine: Endocrine: Reports no additional endocrine complaints Hematologic/Lymphatic: Hematologic/Lymphatic: Reports no additional hematologic/lymphatic complaints Allergic/Immunologic: Allergic/Immunologic: Reports no additional allergic/immunologic complaints [facility] Past Medical History Attestation statement: The following information was validated with the patient. 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 Physical Exam ED Vital Signs: Vital Signs - 24 hr 03/27/24 07:48 03/27/24 08:46 03/27/24 09:45 Temperature 98.6 F 98 F Pulse Rate 70 58 58 Respiratory Rate 16 12 16 Blood Pressure 109/64 117/67 124/70 Pulse Oximetry 98 99 99 Oxygen Delivery Method Room Air Room Air Room Air 03/27/24 09:50 Temperature 98 F Pulse Rate 58 Respiratory Rate 16 Blood Pressure 124/70 Pulse Oximetry 99 Oxygen Delivery Method Room Air BMI result Body Mass Index 23.7 Const General: cooperative, no acute distress, alert and awake Nutritional Appearance: well nourished Orientation/consciousness: patient oriented x3 Limitations: no limitations HENMT Head: Yes normal to inspection and Yes atraumatic Ears: hearing grossly normal bilaterally and external ears normal General nose exam: Normal external nose present, no nasal discharge noted and no epistaxis Face and sinus: Yes normal facial exam, No abrasion and No laceration Mouth: Normal oral and palatal mucosa present, no drooling and no muffled voice Eyes General: appearance normal, both eyes and all related structures Periorbital: periorbital findings normal Eyelids: Yes eyelids normal Conjunctivae: conjunctivae normal Pupils: Equal, round and reactive pupils present EOM: EOMs intact bilaterally Neck Neck: Yes normal visual inspection, Yes full ROM and Yes no lymphadenopathy Chest Chest palpation & inspection: normal inspection of the chest Resp Effort & Inspection: normal respiratory effort and able to speak in complete sentences GI Inspection: Yes normal to inspection Back/Spine/Pelvis Other: patient has pain with the straightening of the low back Neuro General: patient oriented x3 and moves all extremities Cranial nerves: Yes Equal, round and reactive pupils present Cognition (Neuro): normal cognition Extrem Other: patient unable to tolerate an appropriate left knee exam as all ROM is painful General: Yes normal to inspection and Yes capillary refill normal Psych Appearance: grossly normal Mental Status: mental status grossly normal Affect: normal affect Attitude: cooperative Thought process: Normal thought process present Thought content: Normal thought content present Insight: Good insight present (Psych) Medications Administered Discontinued Medications Generic Name Dose Route Start Last Admin Trade Name Freq PRN Reason Stop Dose Admin Diazepam 5 mg 03/27/24 08:20 03/27/24 08:45 Diazepam 10 Mg/2 Ml Cartridge IVPUSH 03/27/24 08:21 5 mg STAT STA Administration Methylprednisolone Sodium Succinate 60 mg 03/27/24 08:20 03/27/24 08:45 Methylprednisolone Sod Succ 125 Mg/2 Ml Vial IVPUSH 03/27/24 08:21 60 mg ONCE ONE Administration Medical Decision Making Medical Decision Making [facility] Narrative: Patient is a 43 year old assigned male at with a history of bilateral meniscus tears presenting to the emergency department today with continued left knee pain and new low back pain. Patient's physical exam was as noted in the physical exam portion of this note. Patient's blood work was unremarkable. Patient's lumbar CT showed a bulging lumbar disc. I explained my physical exam findings as well as all test results to the patient. I answered all questions asked by the patient. Patient received IV Valium and solu-medrol which, upon re- evaluation, he stated it helped his pain. I stressed the importance of the patient taking his medication as directed (either prescribed or as the over the counter packaging recommends). I stressed the importance of the patient following up with his primary care provider, an soil fertility specialist (for his left knee), and a information assurance specialist (for his bulging disc). I stressed the importance of the patient returning to the emergency department immediately if his symptoms were to worsen or if he were to develop any dizziness, shortness of breath, difficulty breathing, chest pain, blurry vision, loss of vision, nausea, vomiting, abdominal pain, fever, chills, back pain, or any other complaints. Patient verbalized agreement and understanding with this treatment plan and discharge. Differential Diagnosis Differential Diagnoses: The differential diagnosis associated with the presentation includes Bulging disc Left knee injury Left knee sprain Admission/Observation Consideration of admission/observation: Escalation of care including admission/observation considered Patient would have been admitted to the hospital had his work up had any findings where hospital admission was appropriate and his clinical presentation warranted hospital admission. Lab Data [facility] Lab Attestation statement: I reviewed the patient's lab results. My interpretation of these results are in the MDM Rationale portion of this note. 03/27/24 08:26 03/27/24 08:26 Labs: Lab Results 03/27/24 Range/Units 08:26 WBC 9.4 (4.8-10.8) X10*3/uL RBC 4.73 (4.60-5.80) X10*6/uL Hgb 14.7 (14.0-18.0) g/dl Hct 42.1 (42.0-52.0) % MCV 89.0 (80.0-98.0) fL MCH 31.1 (27.0-33.0) pg MCHC 34.9 (31.0-36.0) g/dl RDW 11.9 (11.0-16.0) % Plt Count 294 (160-400) X10*3/uL MPV 8.6 L (9.4-12.4) fL Immature Gran % (Auto) 0.5 H (0.0-0.4) % Neut % (Auto) 65.9 (45-73) % Lymph % (Auto) 23.0 (20-40) % [place] % (Auto) 8.9 (2-11) % Eos % (Auto) 1.4 (0-4) % Baso % (Auto) 0.3 (0-2) % Lymph # (Auto) 2.2 (1.2-4.9) X10*3/uL [place] # (Auto) 0.8 (0.1-1.2) X10*3/uL Eos # (Auto) 0.1 (0.0-0.4) X10*3/uL Baso # (Auto) 0.0 (0.0-0.2) X10*3/uL Abs Immat Gran (auto) 0.05 H (0.00-0.03) X10*3/uL Absolute Neuts (auto) 6.2 (2.0-8.3) x10*3/uL Absolute Nucleated RBC 0.000 (0.0-0.012) X10*3/uL Nucleated RBC % (auto) 0.0 (0.0-0.2) /100WBC Sodium 138 (135-145) mmol/L Potassium 3.9 (3.3-5.1) mmol/L Chloride 103 (96-108) mmol/L Carbon Dioxide 28 (22-29) mmol/L Anion Gap 11 L (12-20) BUN 17 H (9-16) mg/dL Creatinine 0.94 (0.5-1.4) mg/dL Estim Creat Clear Calc 110.0 Estimated GFR > 60 Random Glucose 86 (60-115) mg/dL Calcium 9.1 (8.4-10.2) mg/dL Total Bilirubin 0.4 (0.0-1.0) mg/dL AST 20 (5-37) U/L ALT 18 (0-40) U/L Alkaline Phosphatase 58 (39-117) U/L Total Protein 7.1 (6.5-8.0) g/dL Albumin 4.3 (3.5-5.0) g/dL Independent Interpretation I performed an independent interpretation of an: CT Scan Interpretation: My interpretation is in agreement with the radiologist's impression of this imaging study. L EXAMINATION: CT LUMBAR SPINE WITHOUT CONTRAST CLINICAL INFORMATION: Worsening low back pain COMPARISON: None available. TECHNIQUE: Axial sections performed in bone and soft tissue windows without IV contrast enhancement. Sagittal and coronal reconstructions performed. This CT examination was performed using dose optimization techniques as appropriate, variously including the following: *Automated exposure control *Adjustment of mA and/or kV according to patient size (this includes techniques or standardized protocols for targeted exams where dose is matched to indication/reason for exam; i.e. extremities or head) *Use of iterative reconstruction technique DLP; 370 mGy-cm FINDINGS: No CT evidence for acute lumbar compression fracture. Disc spaces appear to be maintained. Minimal spondylitic change. Transverse and spinous processes intact. Small sclerotic foci of the sacrum likely related to small bone islands. There is mild facet arthrosis. Nephrolith of the left kidney measuring 1400 Hounsfield units and 11 mm maximal dimension. There is disc bulging at the L4-5 level with evidence of contact on the left L4 nerve root. Minimal disc bulge at L5-S1 level without significant central stenosis. CT/CT lumbar spine wo IV con IMPRESSION: No acute lumbar compression fracture. Minimal spondylitic change. Mild facet arthrosis. Disc bulge at the L4-5 level with some contact on the left L4 nerve root. Normal disc bulge at the L5-S1 level without significant stenosis. MR examination is outpatient may be helpful toward further clarification. Nonobstructing stone of the left kidney with dimensions as noted above. Other incidental findings as described. Electronically signed by: Bret Andre MD 03/27/2024 09:24 AM EDT Dictated By: Bret Andre Signed By: Electronically signed by Bret Andre 03/27/24 0972 Radiology Impression Discussion of test interpretation with radiology: I have reviewed the radiologist's reading. Critical Care Time Critical Care Time Critical Care Time: Yes Total Critical Care Time: 38 Attestation: I spent 38 minutes of Critical Care Time with this patient. This does not include time spent on separately reported billable procedures. Discharge Plan Discharge Clinical Impression: Knee pain, left, Bulging lumbar disc Patient Disposition: Home, Self-Care Instructions: Acute Low Back Pain (ED), Knee Pain (ED) Additional Instructions: Follow up with your primary care provider, an orthopedic provider, and a information assurance specialist. Return to the emergency department immediately if your symptoms worsen or if you develop any dizziness, shortness of breath, difficulty breathing, chest pain, blurry vision, loss of vision, nausea, vomiting, abdominal pain, fever, chills, back pain, or any other complaints. Prescriptions: New prednisone 20 mg tablet See Rx Instructions .ROUTE .COMPLEX 12 Days Qty: 26 0RF Rx Instructions: 20 mg orally Take 3 tablets for 5 days THEN Take 2 tablets for 4 days THEN Take 1 tablet for 3 days diazepam [Valium] 5 mg tablet 5 mg PO Q8H PRN (Reason: breakthrough pain) Qty: 3 0RF No Action celecoxib 200 mg capsule 200 mg PO BID Qty: 60 0RF ibuprofen 600 mg tablet 600 mg PO Q6H PRN (Reason: pain) Qty: 20 0RF oxycodone 5 mg tablet 5 mg PO Q6H PRN (Reason: pain) Qty: 10 0RF Rx Instructions: Patient may request partial refill; Partial Fill upon patient request. diclofenac sodium 75 mg tablet,delayed release (DR/EC) 75 mg PO BID PRN (Reason: pain) Qty: 60 0RF naproxen 500 mg tablet 500 mg PO Q8H PRN (Reason: pain) Qty: 90 0RF Referrals: [facility] [Provider Group] (Call to establish and follow up with a information assurance specialist for your bulging disc.) [facility] [Provider Group] (Call to establish and follow up with an orthopedic provider.) Luda Mccoy MD [Primary Care Provider] - Stand Alone Forms: Work/School Release Interventions: ED Discharge Assessment Last Done: 03/27/24 09:50 Discharge Date/Time: 03/27/24 09:51 Print Language: Chinese
[2024-03-27 08:30] LABS: MANUAL DIFF FLAG NO
[2024-03-27 08:33] LABS: Basophils Percent Auto 0.3 % (0-2); Eosinophils Absolute Auto 0.1 X10*3/uL (0.0-0.4); Eosinophils Percent Auto 1.4 % (0-4); Hematocrit 42.1 % (42.0-52.0); Hemoglobin 14.7 g/dl (14.0-18.0); Imm Gran Abs Auto 0.05 X10*3/uL (0.00-0.03); Imm Gran Pct Auto 0.5 % (0.0-0.4); Lymphocytes Absolute Auto 2.2 X10*3/uL (1.2-4.9); Mean Corpuscular HGB Conc 34.9 g/dl (31.0-36.0); Mean Corpuscular Hemoglobin 31.1 pg (27.0-33.0); Mean Platelet Volume 8.6 fL (9.4-12.4); Monocytes Absolute Auto 0.8 X10*3/uL (0.1-1.2); Monocytes Percent Auto 8.9 % (2-11); Neutrophils Absolute Auto 6.2 x10*3/uL (2.0-8.3); Neutrophils Percent Auto 65.9 % (45-73); Platelet Count 294 X10*3/uL (160-400); Red Blood Count 4.73 X10*6/uL (4.60-5.80); Red Cell Distribution Width 11.9 % (11.0-16.0); White Blood Count 9.4 X10*3/uL (4.8-10.8)
[2024-03-27] MEDS: methylPREDNISolone Sod Succ 125 MG/2 ML VIAL 60 MG IVPUSH (08:45)
[2024-03-27] MEDS: diazePAM 10 MG/2 ML CARTRIDGE 5 MG IVPUSH (08:45)
[2024-03-27 08:46] VITALS: BP 117/67; PULSE 58; RESP 12; O2SAT 99
[2024-03-27 08:52] LABS: Alanine Aminotransferase 18 U/L (0-40); Albumin Level 4.3 g/dL (3.5-5.0); Alkaline Phosphatase 58 U/L (39-117); Anion Gap 11 (12-20); Aspartate Amino Transferase 20 U/L (5-37); Bilirubin Total 0.4 mg/dL (0.0-1.0); Blood Urea Nitrogen 17 mg/dL (9-16); Calcium 9.1 mg/dL (8.4-10.2); Carbon Dioxide 28 mmol/L (22-29); Chloride 103 mmol/L (96-108); Estimated Glomerular Filt Rate > 60; Glucose Random 86 mg/dL (60-115); Potassium 3.9 mmol/L (3.3-5.1); Sodium 138 mmol/L (135-145); Total Protein 7.1 g/dL (6.5-8.0)
[2024-03-27 09:45] VITALS: BP 124/70; PULSE 58; RESP 16; TEMP 36.6; O2SAT 99
[2024-03-27 09:50] VITALS: BP 124/70; PULSE 58; RESP 16; TEMP 36.6; O2SAT 99
== END 2024-03-27 09:51 | disposition home or self-care (01) ==
PROVIDERS: Physician Assistant Medical; Emergency Provider Emergency Medicine Emergency Medical Services; PCP Internal Medicine
DX: M51.369 Other intervertebral disc degeneration, lumbar region without mention of lumbar back pain or lower extremity pain (principal); M25.562 Pain in left knee; M54.50 Low back pain, unspecified
CPT/HCPCS: 36415; 72131; 80053; 85025; 96374; 96375; 99284; J2919; J3360

== ENCOUNTER 2024-04-05 06:56 | Emergency (ER) | payer MEDICAID, SELFPAY ==
--- NOTE | ~2024-04-05 | US_ITS ---
EXAMINATION: US TRIPLEX LOWER EXTREMITY, LEFT CLINICAL INFORMATION: Edema and pain COMPARISON: None available. TECHNIQUE: Color-flow triplex imaging with spectral analysis and compression Doppler were performed on the left lower extremity. FINDINGS: Respiratory variation, normal compression and augmented flow are noted throughout the left lower extremity. The visualized common femoral vein, superficial femoral vein, profunda femoral vein, popliteal vein and midcalf peroneal and posterior tibial venous segments show no evidence of deep venous thrombosis. There is no Soto's cyst. US/US venous duplex LE LT IMPRESSION: No evidence of deep venous thrombosis involving the left lower extremity. Electronically signed by: Krishna Hermosillo MD 04/05/2024 08:39 AM EST
[2024-04-05 07:02] VITALS: BP 114/64; PULSE 87; RESP 18; TEMP 36.5; O2SAT 97; BMI 24.4
--- NOTE | 2024-04-05 07:16 | ED.LOWEXIN ---
HPI - Extremity Injury (Lower) General Chief Complaint: Extremity Injury, Lower Stated Complaint: l leg pain Time Seen by Provider: 04/05/24 07:08 Source: patient and old records reviewed Mode of arrival: ambulatory Limitations: no limitations History of Present Illness ED Provider: DYLON ELI Narrative: 43 yo male with no sig PMH here for 3rd time in the ER for L hip pain. He notes he did well on prednisone but it just ended. He also takes OTC medications and muscle relaxers. He notes no prior injuries, rash, fevers, he does not inject IVDA. He notes the pain radiates from L low back to L upper thigh. He notes it hurts to move and walk. He has MRI planned for 04/11 and his doctor is involved. He states it is just so bad right now he cannot deal with it. No b/b incontinence or saddle anesthesia reported. He is aware this is likely lumbar radiculopathy. He notes today he feels the L leg is more swollen. MD complaint: other (back pain) Onset (ago): month(s) Place: home Severity: severe Relieving factors: immobilization Exacerbating factors: weight bearing and movement Context: other Associated symptoms: swelling Other symptoms: none Treatments prior to arrival: cold therapy, heat therapy and NSAIDS Related Data Previous Rx's ?Medication ?Instructions ?Recorded ibuprofen 600 mg tablet 600 mg PO Q6H PRN pain #20 tabs 07/01/22 naproxen 500 mg tablet 500 mg PO Q8H PRN pain #90 tabs 11/14/22 celecoxib 200 mg capsule 200 mg PO BID #60 caps 01/23/23 diclofenac sodium 75 mg 75 mg PO BID PRN pain #60 tabs 01/26/23 tablet,delayed release oxycodone 5 mg tablet 5 mg PO Q6H PRN pain #10 tabs 03/23/24 diazepam 5 mg tablet (Valium) 5 mg PO Q8H PRN breakthrough pain 03/27/24 #3 tabs prednisone 20 mg tablet See Rx Instructions .Route 03/27/24 .COMPLEX 12 days #26 tabs morphine 15 mg immediate release 15 mg PO Q6H PRN pain #12 tabs 04/05/24 tablet Allergies Allergy/AdvReac Type Severity Reaction Status Date / Time No Known Allergies Allergy Verified 04/05/24 07:05 Review of Systems Review of Systems: Constitutional : No Weight loss, No Fever, No Chills, ENT/Mouth : No Hearing loss, No Ear Pain, No Nasal Congestion, No Sinus Pain, No Hoarseness, No sore throat, No Rhinorrhea, No Swallowing Difficulty Cardiovascular : No Chest Pain, No SOB Respiratory : No Cough, No Dyspnea Gastrointestinal : No Nausea, No Vomiting, No Diarrhea, No abdominal Pain, No Hematochezia, No Melena Genitourinary : No Dysuria, No Urinary Frequency, No Hematuria, No Urinary Incontinence, Musculoskeletal : positive back pain Skin : No Skin Lesions, No rash Neuro : No Weakness, No Numbness, No Paresthesias, no loss of bowel or bladder incontinence, no saddle anesthesia All other systems reviewed and are negative PMFSH Past Medical History Attestation statement: The following information was validated with the patient. Source: old records reviewed Medical History Anxiety Degenerative arthritis of knee, bilateral Migraine Surgical History Hx of arthroscopic knee surgery Hx of hernia repair Social History Social History Alcohol intake: current Alcohol intake frequency: does not drink Patient Tobacco Use Status: Never used Tobacco Smoked in Last 30 Days: No Use of substances other than those prescribed or required for medical reasons: Yes Substance Use Type: Marijuana Advance Directives: No Advance Directives Information Provided: Yes Do you have a plan to hurt others: No Plan Current occupational status: employed 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 Oriented X3. No acute distress. Eyes: Pupils equal, round and reactive to light. ENT: Pharynx normal. Neck: Normal inspection. Neck supple. CVS: Normal heart rate and rhythm. Pulses normal. Respiratory: No respiratory distress. Breath sounds normal. Abdomen: Soft and non-tender. Skin: Skin warm and dry. Normal skin color. Normal skin turgor. Extremities: L knee mild swelling no warmth or redness, L hip no swelling no rash erythema noted, 2+ DP/PT pulses, pain with movement of leg Neuro: Oriented X 3. No motor deficit. No sensory deficit. no clonus, able to get legs up on the bed without issue though feels spasm and pain in back Medications Administered Discontinued Medications Generic Name Dose Route Start Last Admin Trade Name Avril PRN Reason Stop Dose Admin Diazepam 5 mg 04/05/24 07:22 04/05/24 07:31 Diazepam 5 Mg Tablet PO 04/05/24 07:23 5 mg ONCE ONE Administration Morphine Sulfate 15 mg 04/05/24 07:22 04/05/24 07:31 Morphine Sulfate Immed Release 15 Mg Tablet PO 04/05/24 07:23 15 mg ONCE ONE Administration Medical Decision Making Medical Decision Making [facility] Narrative: 43 yo male with no sig PMH no red flags on history and no concerning exam findings other than mild swelling of L knee though this has happened before - he has no cauda equina symptoms and no signs of infection. Will start on pain control, basic labs, lyme and US for DVT given mild swelling Differential Diagnosis Differential Diagnoses: The differential diagnosis associated with the presentation includes lumbar radiculopathy, DVT, tick borne illness Admission/Observation Consideration of admission/observation: Escalation of care including admission/observation considered feels better able to walk can follow up outpatient Lab Data [facility] Lab Attestation statement: I reviewed the patient's lab results. 04/05/24 07:52 Labs: Lab Results 04/05/24 Range/Units 07:52 Sodium 139 (135-145) mmol/L Potassium 3.7 (3.3-5.1) mmol/L Chloride 104 (96-108) mmol/L Carbon Dioxide 27 (22-29) mmol/L Anion Gap 12 (12-20) BUN 21 H (9-16) mg/dL Creatinine 0.83 (0.5-1.4) mg/dL Estim Creat Clear Calc 124.6 Estimated GFR > 60 Random Glucose 85 (60-115) mg/dL Calcium 8.5 D (8.4-10.2) mg/dL Magnesium 2.1 (1.6-2.6) mg/dL Independent Interpretation I performed an independent interpretation of an: Ultrasound (no DVT) Radiology Impression Discussion of test interpretation with radiology: I have reviewed the radiologist's reading. External Record Review External record reviewed: Outpatient record and Prior outpatient radiology Prescription Management I considered prescription management with: Pain Medication Discharge Plan Discharge Clinical Impression: Left lumbar radiculopathy Patient Disposition: Home, Self-Care Instructions: Lumbar Radiculopathy (ED) Additional Instructions: labs reassuring leg ultrasound normal pending lyme test return for any worsening symptoms or concern, loss of control of bowel or bladder, or any other concerns. Prescriptions: New morphine 15 mg tablet 15 mg PO Q6H PRN (Reason: pain) Qty: 12 0RF Rx Instructions: partial fill okay; Partial Fill upon patient request. No Action celecoxib 200 mg capsule 200 mg PO BID Qty: 60 0RF ibuprofen 600 mg tablet 600 mg PO Q6H PRN (Reason: pain) Qty: 20 0RF oxycodone 5 mg tablet 5 mg PO Q6H PRN (Reason: pain) Qty: 10 0RF Rx Instructions: Patient may request partial refill; Partial Fill upon patient request. prednisone 20 mg tablet See Rx Instructions .ROUTE .COMPLEX 12 Days Qty: 26 0RF Rx Instructions: 20 mg orally Take 3 tablets for 5 days THEN Take 2 tablets for 4 days THEN Take 1 tablet for 3 days diazepam [Valium] 5 mg tablet 5 mg PO Q8H PRN (Reason: breakthrough pain) Qty: 3 0RF diclofenac sodium 75 mg tablet,delayed release (DR/EC) 75 mg PO BID PRN (Reason: pain) Qty: 60 0RF naproxen 500 mg tablet 500 mg PO Q8H PRN (Reason: pain) Qty: 90 0RF Stand Alone Forms: Work/School Release Print Language: Cam[place]onian
[2024-04-05] MEDS: Morphine Sulfate Immed Release 15 MG TABLET PO (07:31)
[2024-04-05] MEDS: diazePAM 5 MG TABLET PO (07:31)
--- NOTE | 2024-04-05 07:41 | PC.NURSE ---
a&ox4. vss and up to date. pt presents to the ED c/o ongoing constant left hip pain radiating to LLE x 3 weeks. pt denies any trauma/injury or associated numbness/tingling. limited ROM noted. pt reports difficulty bearing weight. reports 10/10 pain. pt medicated per provider order. effectiveness pending. pt waiting to have US completed. no sob/wob noted. respirations even/unlabored. plan of care ongoing. call rosas placed within reach.
--- NOTE | 2024-04-05 07:57 | PC.NURSE ---
lab work obtained/sent to lab by [facility]. ultrasound being completed at this time.
[2024-04-05 08:15] LABS: Anion Gap 12 (12-20); Blood Urea Nitrogen 21 mg/dL (9-16); Calcium 8.5 mg/dL (8.4-10.2); Carbon Dioxide 27 mmol/L (22-29); Chloride 104 mmol/L (96-108); Creatinine Clr Calc Pharmacy 124.6; Estimated Glomerular Filt Rate > 60; Glucose Random 85 mg/dL (60-115); Magnesium 2.1 mg/dL (1.6-2.6); Potassium 3.7 mmol/L (3.3-5.1); Sodium 139 mmol/L (135-145)
[2024-04-05 08:52] VITALS: BP 110/58; PULSE 64; RESP 16; TEMP 36.4; O2SAT 97
[2024-04-05 08:53] VITALS: BP 110/58; PULSE 64; RESP 16; TEMP 36.4; O2SAT 97
[2024-04-05] MEDS: Ketorolac Tromethamine 30 MG/ML VIAL IM (08:55)
[2024-04-08 17:59] LABS: Lyme Abs Screen <0.90 index
== END 2024-04-05 08:58 | disposition home or self-care (01) ==
PROVIDERS: Emergency Provider Emergency Medicine; PCP Internal Medicine
DX: M54.16 Radiculopathy, lumbar region (principal); M79.605 Pain in left leg; Z79.899 Other long term (current) drug therapy
CPT/HCPCS: 36415; 80048; 83735; 86617; 86618; 93971; 96372; 99284; J1885

== ENCOUNTER 2024-05-03 09:12 | Outpatient (REF) | payer MEDICAID, SELFPAY | END 2024-05-03 09:13 | disposition home or self-care (01) | LOC: HO.HOSX 09:12 | PROVIDERS: PCP Internal Medicine; Visit Provider Physician Assistant | DX: Z13.89 Encounter for screening for other disorder (principal) ==

== ENCOUNTER 2025-04-04 06:02 | Emergency (ER) | payer SELFPAY ==
[2025-04-04] VITALS (9 sets, daily range): BP systolic 103–166; BP diastolic 41–67; PULSE 61–103; RESP 12–26; TEMP 36.3–36.6; O2SAT 95–100; BMI 24.3
--- NOTE | ~2025-04-04 | CT_ITS ---
EXAMINATION: CT ABDOMEN PELVIS WITH IV CONTRAST HISTORY: Severe ABD pain, diffuse tenderness, R/O perforation COMPARISON: There are no prior studies for available comparison. TECHNIQUE: CT scan of the abdomen and pelvis was performed following administration of 85 mL Omnipaque 350 using standard departmental protocol. Coronal and sagittal reformatted images were generated and reviewed. Oral contrast material was not administered at the request of the referring physician. This CT exam was performed with one or more of the following dose reduction techniques: automated exposure control, adjustment of the mA and/or kV according to patient size, use of iterative reconstruction technique. DLP: 576 mGy-cm FINDINGS: LOWER CHEST: The visualized lung bases are clear. There is no pleural effusion. CARDIOVASCULATURE: The heart is normal in size. There is no pericardial effusion. LIVER: The liver is normal in size and contour. No liver mass is identified. The hepatic and portal veins are patent. GALLBLADDER / BILE DUCTS: The gallbladder is unremarkable. There is no intra or extrahepatic biliary ductal dilatation. SPLEEN: The spleen is normal in size. No focal splenic lesion is identified. PANCREAS: The pancreas is unremarkable in appearance. ADRENAL GLANDS: Within normal limits. KIDNEYS/RETROPERITONEUM: There is a 12 mm nonobstructing calculus at the upper pole of the left kidney. No right renal calculi are seen. There is no hydronephrosis. There are probable subcentimeter left renal cysts. LYMPH NODES: No abdominal or pelvic lymphadenopathy. VASCULATURE: The abdominal aorta is normal in caliber. MESENTERY/PERITONEUM: No free fluid. No masses. There is no free intraperitoneal gas. STOMACH: There is a small hiatal hernia. The remainder of the stomach is unremarkable. SMALL BOWEL: The small bowel is normal in caliber. COLON: The colon is unremarkable. APPENDIX: Normal. URINARY BLADDER/PELVIC ORGANS: The urinary bladder is unremarkable. The prostate is normal in size. BONES / SOFT TISSUES: No suspicious bony or soft tissue abnormalities. CT/CT abdomen pelvis w IV con IMPRESSION: 12 mm nonobstructing calculus at the upper pole of the left kidney. Small hiatal hernia. Otherwise unremarkable contrast-enhanced CT of the abdomen and pelvis. Electronically signed by: Fidel España MD 04/04/2025 08:06 AM SKYLAR SOTO
--- NOTE | 2025-04-04 06:16 | ED.ABDPAIN ---
HPI - Abdominal Pain General Chief Complaint: Abdominal Pain Stated Complaint: ABD PAIN Time Seen by Provider: 04/04/25 06:16 Source: patient and family () Mode of arrival: ambulatory Limitations: no limitations History of Present Illness ED Provider: Dr. Jimmie Guevara HPI narrative: 44-year-old male with a history of migraine headaches, depression, anxiety, bilateral degenerative arthritis of the knees who presents emergency department for evaluation of nausea, vomiting and abdominal pain. Patient's abdominal pain started yesterday around 20:00 hours. Around 03:00 hours the pain got worse, the patient developed nausea and vomiting. He states he has vomited multiple times prior to coming to the emergency department. Patient points to his epigastric area when asked to localize the pain, he describes it as a sharp, constant pain which is greater than 10/10. He states he is feeling very anxious as well in his requesting something for his anxiety. He denied fever, chills, chest pain or shortness of breath. He has not had any change in his bowel movements. He denied frequency, urgency or dysuria. Related Data Previous Rx's ?Medication ?Instructions ?Recorded ibuprofen 600 mg tablet 600 mg PO Q6H PRN pain #20 tabs 07/01/22 naproxen 500 mg tablet 500 mg PO Q8H PRN pain #90 tabs 11/14/22 celecoxib 200 mg capsule 200 mg PO BID #60 caps 01/23/23 diclofenac sodium 75 mg 75 mg PO BID PRN pain #60 tabs 01/26/23 tablet,delayed release oxycodone 5 mg tablet 5 mg PO Q6H PRN pain #10 tabs 03/23/24 diazepam 5 mg tablet (Valium) 5 mg PO Q8H PRN breakthrough pain 03/27/24 #3 tabs prednisone 20 mg tablet See Rx Instructions .Route 03/27/24 .COMPLEX 12 days #26 tabs morphine 15 mg immediate release 15 mg PO Q6H PRN pain #12 tabs 04/05/24 tablet morphine 15 mg immediate release 15 mg PO Q6H PRN pain #14 tabs 04/04/25 tablet ondansetron 4 mg disintegrating 4 mg PO Q6-8H PRN nausea and 04/04/25 tablet vomiting #14 tabs Allergies Allergy/AdvReac Type Severity Reaction Status Date / Time No Known Allergies Allergy Verified 04/04/25 06:14 Review of Systems Review of Systems Yes all other systems are reviewed and are negative [facility] Past Medical History [facility] Narrative: Social history: He is . His is here in the emergency department with him. He denies tobacco and alcohol use. He does smoke marijuana, denies other drug use. 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 Physical Exam ED Vital Signs: Vital Signs - 24 hr 04/04/25 06:05 04/04/25 06:52 04/04/25 07:56 Temperature 97.4 F 97.4 F 97.9 F Pulse Rate 103 H 103 H 63 Respiratory Rate 26 H 26 H 18 Blood Pressure 166/67 H 166/67 H 123/59 L Pulse Oximetry 100 100 100 Oxygen Delivery Method Room Air Room Air Room Air 04/04/25 08:33 04/04/25 08:46 04/04/25 09:25 Temperature 97.7 F Pulse Rate 68 61 70 Respiratory Rate 17 18 14 Blood Pressure 131/41 L 119/61 108/51 L Pulse Oximetry 99 99 95 Oxygen Delivery Method Room Air Room Air Room Air 04/04/25 09:51 Temperature Pulse Rate 82 Respiratory Rate 14 Blood Pressure 103/50 L Pulse Oximetry 99 Oxygen Delivery Method Room Air BMI result Body Mass Index 24.3 Vital signs revealed an elevated blood pressure of 166/67 with a an elevated heart rate of 103 Exam: General: Awake, anxious, diaphoretic, appears to be in distress secondary to his pain and anxiety Head: Normocephalic, atraumatic EENT: PERRL, sclera and conjunctiva are normal, mouth with no erythema or exudates Neck: Supple, no adenopathy Lung: breath sounds symmetric, no wheezing, no rales and no rhonchi Chest: symmetric movement, nontender Heart: regular rate and rhythm, normal S1, S2 no murmurs or rubs Abdomen: soft, mild to moderate diffuse abdominal tenderness, nondistended, normal bowel sounds Back: no vertebral tenderness, no CVAT Extremities: no deformities, moves all extremities symmetrically, no edema Neuro: Awake, alert, oriented, normal speech, cranial nerves 2-12 intact, moves all extremities symmetrically Psych: Pleasant, cooperative Medical Decision Making Medical Decision Making MDM Narrative: 44-year-old male with a history of migraine headaches, depression, anxiety, bilateral degenerative arthritis of the knees who presents emergency department for evaluation of nausea, vomiting and abdominal pain. Patient's abdominal pain started yesterday around 20:00 hours. Around 03:00 hours the pain got worse, the patient developed nausea and vomiting. He states he has vomited multiple times prior to coming to the emergency department. Patient points to his epigastric area when asked to localize the pain, he describes it as a sharp, constant pain which is greater than 10/10. He states he is feeling very anxious as well in his requesting something for his anxiety. He denied fever, chills, chest pain or shortness of breath. He has not had any change in his bowel movements. He denied frequency, urgency or dysuria. Vital signs revealed an elevated blood pressure, pulse and respiratory rate. Patient was diaphoretic, in distress and appeared to be very anxious. Patient had diffuse abdominal tenderness with no localizing tenderness. Exam was otherwise unremarkable Differential diagnosis: ?Includes but is not limited to viral syndrome, COVID, influenza, diverticulitis, gastritis, pancreatitis, appendicitis, abdominal perforation, anemia, electrolyte abnormalities Course: 06:40 I ordered a laboratory evaluation to include blood cultures and lactic acid. I think that the patient is elevated vital signs are secondary to his pain anxiety and not an infectious source at this time. Patient was ordered to get Toradol 15 mg IV, Zofran 4 mg IV and Versed 4 mg IV. 07:10 My interpretation patient's laboratory evaluation is as follows: WBC elevated 16,400. Bicarb low 15. BUN elevated 18. Normal creatinine. Glucose elevated 144. Lactic acid elevated 7.9. Anion gap 22. Ethanol below detectable limits. Given the elevated lactate in his severe abdominal pain, at this time, I am concerned that the patient may have an abdominal infection therefore I made the patient a sepsis alert . I also ordered normal saline bolus 30 cc/kilogram and Zosyn 4.5 g IV empirically to cover possible abdominal source. Patient states his anxiety is improved but he is still having severe abdominal pain. Patient still appears to be in distress secondary to his pain. He has increased tenderness with palpation in the epigastric area with diffuse abdominal tenderness. Patient was ordered to get Dilaudid 1 mg IV for his pain. 09:13 Patient's pain improved to 4/10 and he received a 2nd dose of Dilaudid 1 mg IV. Abdominal exam revealed mild diffuse tenderness with no localizing tenderness. CT scan did not reveal any clear cause for the patient's abdominal pain there was no evidence for perforation which is reassuring. Patient does have a 12 mm nonobstructing left renal stone but this has not the cause of his pain. Patient's told me that the patient has been shaking uncontrollably since 02:00 and I suspect that the patient's elevated lactic acid may be caused by consistent with physiologic lactic acidosis due to muscle activity. 11:31 Patient feels significantly better and is pain-free. Patient's repeat lactic acid came down to 2.6 which is most likely physiologic from his muscle shaking. CK was normal. At this time, I do not have a clear cause for his pain, he may have gastritis or an early viral syndrome. Patient was advised to take Tylenol and ibuprofen for pain not relieved by these medications he was prescribed morphine 4 mg every 6 hours as needed for pain. He was also prescribed Zofran 4 mg ODT q.6 to 8 hours as needed for nausea and vomiting. Patient does have a large nonobstructing left kidney stone. Patient will be referred to Urology for follow up with his kidney stone to see if it needs any intervention. Patient was discharged home with printed and verbal instructions, he was discharged home in the care of his . Differential Diagnosis Differential Diagnoses: The differential diagnosis associated with the presentation includes (See above) Admission/Observation Consideration of admission/observation: Escalation of care including admission/observation considered (Yes) Lab Data 04/04/25 06:23 04/04/25 06:23 Labs: Lab Results 04/04/25 04/04/25 04/04/25 Range/Units 06:23 06:28 07:47 WBC 16.4 H (4.8-10.8) X10*3/uL RBC 5.09 (4.60-5.80) X10*6/uL Hgb 15.7 (14.0-18.0) g/dl Hct 43.8 (42.0-52.0) % MCV 86.1 (80.0-98.0) fL MCH 30.8 (27.0-33.0) pg MCHC 35.8 (31.0-36.0) g/dl RDW 12.0 (11.0-16.0) % Plt Count 348 (160-400) X10*3/uL MPV 9.1 L (9.4-12.4) fL Immature Gran % (Auto) 0.8 H (0.0-0.4) % Neut % (Auto) 85.1 H (45-73) % Lymph % (Auto) 8.0 L (20-40) % [place] % (Auto) 5.6 (2-11) % Eos % (Auto) 0.1 (0-4) % Baso % (Auto) 0.4 (0-2) % Lymph # (Auto) 1.3 (1.2-4.9) X10*3/uL [place] # (Auto) 0.9 (0.1-1.2) X10*3/uL Eos # (Auto) 0.0 (0.0-0.4) X10*3/uL Baso # (Auto) 0.1 (0.0-0.2) X10*3/uL Abs Immat Gran (auto) 0.13 H (0.00-0.03) X10*3/uL Absolute Neuts (auto) 14.0 H (2.0-8.3) x10*3/uL Absolute Nucleated RBC 0.000 (0.0-0.012) X10*3/uL Nucleated RBC % (auto) 0.0 (0.0-0.2) /100WBC Sodium 140 (135-145) mmol/L Potassium 3.6 (3.3-5.1) mmol/L Chloride 107 (96-108) mmol/L Carbon Dioxide 15 L (22-29) mmol/L Anion Gap 22 H (12-20) BUN 18 H (9-16) mg/dL Creatinine 0.94 (0.5-1.4) mg/dL Estim Creat Clear Calc 108.9 Estimated GFR > 60 Random Glucose 144 H (60-115) mg/dL Lactic Acid 7.9 H* (0.5-2.0) mmol/L Lactic Acid F/U @ 2Hr (0.5-2.0) mmol/L Calcium 9.9 D (8.4-10.2) mg/dL Total Bilirubin 0.6 (0.0-1.0) mg/dL AST 27 (5-37) U/L ALT 15 (0-40) U/L Alkaline Phosphatase 63 (39-117) U/L Total Creatine Kinase 124 (38-174) U/L Total Protein 7.6 (6.5-8.0) g/dL Albumin 5.0 (3.5-5.0) g/dL Lipase 26 (8-78) U/L Urine Color Urine Appearance Urine pH (5.0-9.0) Ur Specific [place] (1.005-1.025) Urine Protein (Neg-Trace) mg/dL Urine Glucose (UA) (Negative) mg/dL Urine Ketones (Negative) mg/dL Urine Blood (Negative) Urine Nitrite (Negative) Ur Leukocyte Esterase (Negative) Urine RBC (0-2) /HPF Urine WBC (0-5) /HPF Ur Squamous Epith Cells (0-2) /HPF Urine Bacteria (None Seen) Hyaline Casts (0-2) /LPF Urine Opiates Screen (Not Detect) Ur Buprenorphine Scrn (Not Detect) ng/mL Ur Oxycodone Screen (Not Detect) ng/mL Urine Methadone Screen (Not Detect) ng/mL Urine Fentanyl Screen (Not Detect) Ur Barbiturates Screen (Not Detect) Ur Phencyclidine Scrn (Not Detect) Ur Amphetamines Screen (Not Detect) U Benzodiazepines Scrn (Not Detect) Urine Cocaine Screen (Not Detect) U Marijuana (THC) Screen (Not Detect) Ethyl Alcohol < 10 mg/dL COVID-19 (JUAN) Negative (Negative) COVID-19 Clin Com See Note Influenza Type A (HAN) Negative (Negative) Influenza Type B (HAN) Negative (Negative) Influenza A & B Note See Note 04/04/25 04/04/25 Range/Units 08:48 09:10 WBC (4.8-10.8) X10*3/uL RBC (4.60-5.80) X10*6/uL Hgb (14.0-18.0) g/dl Hct (42.0-52.0) % MCV (80.0-98.0) fL MCH (27.0-33.0) pg MCHC (31.0-36.0) g/dl RDW (11.0-16.0) % Plt Count (160-400) X10*3/uL MPV (9.4-12.4) fL Immature Gran % (Auto) (0.0-0.4) % Neut % (Auto) (45-73) % Lymph % (Auto) (20-40) % [place] % (Auto) (2-11) % Eos % (Auto) (0-4) % Baso % (Auto) (0-2) % Lymph # (Auto) (1.2-4.9) X10*3/uL [place] # (Auto) (0.1-1.2) X10*3/uL Eos # (Auto) (0.0-0.4) X10*3/uL Baso # (Auto) (0.0-0.2) X10*3/uL Abs Immat Gran (auto) (0.00-0.03) X10*3/uL Absolute Neuts (auto) (2.0-8.3) x10*3/uL Absolute Nucleated RBC (0.0-0.012) X10*3/uL Nucleated RBC % (auto) (0.0-0.2) /100WBC Sodium (135-145) mmol/L Potassium (3.3-5.1) mmol/L Chloride (96-108) mmol/L Carbon Dioxide (22-29) mmol/L Anion Gap (12-20) BUN (9-16) mg/dL Creatinine (0.5-1.4) mg/dL Estim Creat Clear Calc Estimated GFR Random Glucose (60-115) mg/dL Lactic Acid (0.5-2.0) mmol/L Lactic Acid F/U @ 2Hr 2.6 H* (0.5-2.0) mmol/L Calcium (8.4-10.2) mg/dL Total Bilirubin (0.0-1.0) mg/dL AST (5-37) U/L ALT (0-40) U/L Alkaline Phosphatase (39-117) U/L Total Creatine Kinase (38-174) U/L Total Protein (6.5-8.0) g/dL Albumin (3.5-5.0) g/dL Lipase (8-78) U/L Urine Color Yellow Urine Appearance Clear Urine pH 7.5 (5.0-9.0) Ur Specific [place] >= 1.030 H (1.005-1.025) Urine Protein Trace (Neg-Trace) mg/dL Urine Glucose (UA) Negative (Negative) mg/dL Urine Ketones 15 (Negative) mg/dL Urine Blood Trace H (Negative) Urine Nitrite Negative (Negative) Ur Leukocyte Esterase Negative (Negative) Urine RBC 3-5 H (0-2) /HPF Urine WBC 0-5 (0-5) /HPF Ur Squamous Epith Cells 0-2 (0-2) /HPF Urine Bacteria None Seen (None Seen) Hyaline Casts 0-2 (0-2) /LPF Urine Opiates Screen Not Detected (Not Detect) Ur Buprenorphine Scrn Not Detected (Not Detect) ng/mL Ur Oxycodone Screen Not Detected (Not Detect) ng/mL Urine Methadone Screen Not Detected (Not Detect) ng/mL Urine Fentanyl Screen Not Detected (Not Detect) Ur Barbiturates Screen Not Detected (Not Detect) Ur Phencyclidine Scrn Not Detected (Not Detect) Ur Amphetamines Screen Not Detected (Not Detect) U Benzodiazepines Scrn POSITIVE H (Not Detect) Urine Cocaine Screen Not Detected (Not Detect) U Marijuana (THC) Screen POSITIVE H (Not Detect) Ethyl Alcohol mg/dL COVID-19 (JUAN) (Negative) COVID-19 Clin Com Influenza Type A (HAN) (Negative) Influenza Type B (HAN) (Negative) Influenza A & B Note Radiology Impression Discussion of test interpretation with radiology: I have reviewed the radiologist's reading. Radiologist Impression: CT abdomen pelvis w IV con IMPRESSION: 12 mm nonobstructing calculus at the upper pole of the left kidney. Small hiatal hernia. Otherwise unremarkable contrast-enhanced CT of the abdomen and pelvis. Electronically signed by: Fidel España MD Medications Administered Discontinued Medications Generic Name Dose Route Start Last Admin Trade Name Freq PRN Reason Stop Dose Admin Hydromorphone HCl 1 mg 04/04/25 07:15 04/04/25 07:25 Hydromorphone Hcl 1 Mg/Ml Syringe IVPUSH 04/04/25 07:16 1 mg ONCE STA Administration Protocol Hydromorphone HCl 1 mg 04/04/25 08:30 04/04/25 08:44 Hydromorphone Hcl 1 Mg/Ml Syringe IVPUSH 04/04/25 08:31 1 mg ONCE STA Administration Protocol Sodium Chloride 1,000 mls @ 999 mls/hr 04/04/25 06:23 04/04/25 07:37 Ns IV 04/04/25 07:23 Infused .Q1H1M STA Infusion Sodium Chloride 2,436 mls @ 2,436 mls/hr 04/04/25 07:09 04/04/25 09:05 Ns 30 ml/kg infuse over 1 hr (2436 ml) 04/04/25 08:08 Infused IV Infusion .Q1H STA Piperacillin Sod/Tazobactam 100 mls @ 200 mls/hr 04/04/25 07:09 04/04/25 07:55 Sod 4.5 gm/ Sodium Chloride IV 04/04/25 07:38 Infused ONCE ONE Infusion Iohexol 100 ml 04/04/25 07:55 04/04/25 07:55 Iohexol 350 Mg/Ml 100 Ml Infus..Btl IV 04/04/25 07:56 85 ml ONCE ONE Administration Ketorolac Tromethamine 15 mg 04/04/25 06:23 04/04/25 06:36 Ketorolac Tromethamine 15 Mg/Ml Vial IVPUSH 04/04/25 06:24 15 mg ONCE STA Administration Midazolam HCl 4 mg 04/04/25 06:23 04/04/25 06:36 Midazolam Hcl 2 Mg/2 Ml Vial IVPUSH 04/04/25 06:24 4 mg ONCE ONE Administration Ondansetron HCl 4 mg 04/04/25 06:23 04/04/25 06:36 Ondansetron Hcl 4 Mg/2 Ml Vial IVPUSH 04/04/25 06:24 4 mg ONCE ONE Administration Critical Care Time Critical Care Time Critical Care Time: Yes Total Critical Care Time: 45 Attestation: Critical Care: The patient was critically ill with a high probability of imminent or life threatening deterioration. I spent greater than 30 minutes of discontinuous time evaluating the patient,delivering critical care at the bedside, discussing and evaluating pertinent data with consultants. Critical care time does not include time spent performing separately billable procedures or teaching. Total time spent performing critical care was 45 minutes. Discharge Plan Discharge Clinical Impression: Abdominal pain, Nausea & vomiting, Acute lactic acidosis, Muscle spasm, Kidney stone on left side Patient Disposition: Home, Self-Care Instructions: Gastritis (ED), Viral Syndrome (ED) Additional Instructions: At this time, I do not have a clear cause for your abdominal pain. You may have inflammation of your stomach (gastritis) or a viral illness that is making you sick. Continue taking medications as prescribed by your providers. Take ibuprofen 200 mg pills, 2 pills every 6 hours as needed for pain. Take Tylenol (acetaminophen) 2 pills every 6 hours as needed for pain. For pain not relieved by ibuprofen or Tylenol take morphine 15 mg pills, 1 pill every 6 hours as needed for pain. This medication will make you sleepy, do not drive or work while taking this medication. Morphine is a narcotic medication and can be addicting. If you are concerned about addiction you can ask the pharmacist for less pills or do not get this prescription filled. Take Zofran ODT 4 mg pills, 1 pill dissolved in your mouth every 8 hours as needed for nausea and vomiting. Follow-up with your doctor in 2 days. Take Pepcid (famotidine) 20 mg pills, 1 pill once a day for 2 weeks. ?This medication reduces the amount of acid that your stomach produces and will help the inflammation in your stomach heal. Please return to the emergency department if your symptoms get worse or if you develop any symptoms that are concerning to you. Prescriptions: New morphine 15 mg tablet 15 mg PO Q6H PRN (Reason: pain) Qty: 14 0RF Rx Instructions: Patient may request partial fill; Partial Fill upon patient request. ondansetron 4 mg tablet,disintegrating 4 mg PO Q6-8H PRN (Reason: nausea and vomiting) Qty: 14 0RF No Action celecoxib 200 mg capsule 200 mg PO BID Qty: 60 0RF ibuprofen 600 mg tablet 600 mg PO Q6H PRN (Reason: pain) Qty: 20 0RF oxycodone 5 mg tablet 5 mg PO Q6H PRN (Reason: pain) Qty: 10 0RF Rx Instructions: Patient may request partial refill; Partial Fill upon patient request. prednisone 20 mg tablet See Rx Instructions .ROUTE .COMPLEX 12 Days Qty: 26 0RF Rx Instructions: 20 mg orally Take 3 tablets for 5 days THEN Take 2 tablets for 4 days THEN Take 1 tablet for 3 days diazepam [Valium] 5 mg tablet 5 mg PO Q8H PRN (Reason: breakthrough pain) Qty: 3 0RF morphine 15 mg tablet 15 mg PO Q6H PRN (Reason: pain) Qty: 12 0RF Rx Instructions: partial fill okay; Partial Fill upon patient request. diclofenac sodium 75 mg tablet,delayed release (DR/EC) 75 mg PO BID PRN (Reason: pain) Qty: 60 0RF naproxen 500 mg tablet 500 mg PO Q8H PRN (Reason: pain) Qty: 90 0RF Print Language: Kiswahili
[2025-04-04 06:33] LABS: MANUAL DIFF FLAG NO
[2025-04-04 06:42] LABS: Hematocrit 43.8 % (42.0-52.0); Hemoglobin 15.7 g/dl (14.0-18.0); Imm Gran Abs Auto 0.13 X10*3/uL (0.00-0.03); Imm Gran Pct Auto 0.8 % (0.0-0.4); Lymphocytes Absolute Auto 1.3 X10*3/uL (1.2-4.9); Mean Corpuscular HGB Conc 35.8 g/dl (31.0-36.0); Mean Corpuscular Hemoglobin 30.8 pg (27.0-33.0); Mean Corpuscular Volume 86.1 fL (80.0-98.0); NRBC Abs Auto 0.000 X10*3/uL (0.0-0.012); NRBC Pct Auto 0.0 /100WBC (0.0-0.2); Platelet Count 348 X10*3/uL (160-400); Red Blood Count 5.09 X10*6/uL (4.60-5.80); White Blood Count 16.4 X10*3/uL (4.8-10.8)
[2025-04-04 06:57] LABS: Alanine Aminotransferase 15 U/L (0-40); Albumin Level 5.0 g/dL (3.5-5.0); Alkaline Phosphatase 63 U/L (39-117); Anion Gap 22 (12-20); Aspartate Amino Transferase 27 U/L (5-37); Blood Urea Nitrogen 18 mg/dL (9-16); Calcium 9.9 mg/dL (8.4-10.2); Carbon Dioxide 15 mmol/L (22-29); Chloride 107 mmol/L (96-108); Creatinine Clr Calc Pharmacy 108.9; Estimated Glomerular Filt Rate > 60; Lipase 26 U/L (8-78); Potassium 3.6 mmol/L (3.3-5.1); Sodium 140 mmol/L (135-145); Total Protein 7.6 g/dL (6.5-8.0)
--- OUTSIDE RECORDS SUMMARY | 2025-04-04 07:08 | XMS_ITS | Data Portability ---
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 Likely disc herniation. Has associated numbness weakness issues which are progressive. As such we will order an MRI and evaluate for compressive lesion and follow-up thereafter. Natural history reviewed and questions answered. Not available 04/01/2024 17:09:14 05/14/2024 05/14/2024 43-year-old male with back and radiating left leg pain consistent with an L4 radiculopathy over the last 3 months time. Recently performed MRI consistent with the herniated far lateral disc herniation at L4 nerve root impingement left. Recommend a microdiscectomy and described in detail. Patient is going to review with family and get back to us when he wants to proceed. Natural history reviewed and questions answered. Lumbar spine MRI. Imaging independently reviewed in the office today with findings discussed and all questions answered. Not available 05/14/2024 16:38:24 Plan of Treatment Reminders Order Date Submit Date Provider Last Modified By Organization Details Last Modified Time Details Appointments None recorded. Lab None recorded. Referral physical therapist referral - VMO Strengthe jayda, Hip Abductor, Glute Med Strengthe jayda, Quad & Hamstring Stretchin g, Patella Mobilizat ionTiffanie Taping at your discretio n. 2023 024 [facility] Pavel - Li Mcmillan, [address] [facility] , [address], [place], [address], 4 14:17:17 Procedures None recorded. Surgeries None recorded. Imaging XR, knee, 4 or more view - room 220 left knee 2023 024 mirthaenger [facility] Office, [address], [address], [place], [address], 4 14:17:17 Medication Orders Medrol (Lyle) 4 mg tablets in a dose pack 2023 024 [id number], [address] [place], [address], 09:52:12 Patient TargetsNo targets recorded. Patient InstructionsNo instructions recorded. Reason for Referral Physical Therapist Referral for Chondromalacia of left patella VMO Strengthening, Hip Abductor, Glute Med Strengthening, Quad & Hamstring Stretching, Patella Mobilization, Moreno Taping at your discretion. Referring Physician: Norm Finley, Orthopedic Surgery, [id number] Encounter Date: 04/15/2024 Results Created Date Observation Date Name Description Value Unit Range Abnormal Flag Note LastModifiedBy Organization Detail LastModifiedTime 04/15/2004/15/2024 XR, knee, 4 or more view http:/ [email or web address] ?Encry pted=s hAaTro YD8dLq bEUv6g %2BXZw aYqtaq 0bqfl% 2Fg9IQ a4ajBk vP9nXo QUaueC m3YtLR FvZlgJ JJ8mAn HZtai3 9e8153 AC0Kqa XyEVqW hKiQtr MwF INTERFACE [facility] [address], [place], [address], 04/15/2024 09:24:43 04/15/20 24 04/15/2024 XR, knee, 4 or more view http:/ [email or web address] ?Encry pted=s hAaTro YD8dLq bEUv6g %2BXZw aYqtaq 0bqfl% 2Fg9IQ a4ajBk vP9nXo QUaueC m3YtLR FvZlgJ JJ8mAn HZtai3 6u0106 AC0Kqa XyEVqW hKiQtr MwF INTERFACE [facility] [address], [place], [address], 04/15/2024 09:24:45 04/16/20 24 04/13/2024 MRI, lumba r spine , w/o contr ast [facility] Access ion Number : [id number] Patien t Name: Iman Mc do Marthaa lisa Record Number : [id number] Date of : 1980 Date of Exam: 2023 Referr ing Physic qamar: Fidel Blankenship [address] [place] [address] Exam: MR Lumbar Spine (C-) CPT 52948 Room Descri ption: [place] GE Pion 3T MR Lumbar Spine (C-) CPT 83101 INDICA TION: M54.16 - Radicu lopath y, lumbar region , evalua te for radicu lopath y. TECHNI QUE: Multip lanar, multis equenc e MRI of the lumbar spine was perfor med withou t intrav enous contra st. COMPAR SUSIE: None. FINDIN GS: Multip le images are degrad ed by motion artifa ct, which may obscur e fine detail . NUMBER ING: The study assume s 5 non-ri b-bear ing lumbar type verteb ral bodies . ALIGNM ENT, VERTEB HAO, MARROW , AND DISCS: Mild levoco nvex lumbar curvat ure is noted. Sagitt al alignm ent is mainta ined. Verteb ral body height s are preser christina. There is no signif icant marrow signal abnorm ality. There is mild disc desicc ation at L3-4 and L5-S1, with minima l loss of disc space. CONUS: The conus is normal in signal and contou r, with normal level of termin ation at L1-2. PARASP INAL TISSUE S: The parasp inal soft tissue s are unrema rkable . DETAIL ED FINDIN GS BY LEVEL: T12-L1 : No signif icant disc hernia tion, centra l stenos is, or neural forami nal narrow ing. L1-L2: No signif icant disc hernia tion, centra l stenos is, or neural forami nal narrow ing. L2-L3: No signif icant disc hernia tion, centra l stenos is, or neural forami nal narrow ing. L3-L4: Mild broad- based disc bulge. No signif icant centra l stenos is. Mild bilate ral neural forami nal narrow ing. L4-L5: Broad- based disc bulge with superi mposed left forami nal protru katlyn. No signif icant centra l stenos is. Mild right and modera te left neural forami nal narrow ing with deflec tion of the exitin g left L4 nerve root. L5-S1: Mild broad- based disc bulge with left forami nal annula r fissur e. Mild facet spurri ng. No signif icant centra l stenos is. Mild left and no right neural forami nal narrow ing. IMPRES KATLYN: Degene rative change s of the lumbar spine as above, somewh at degrad ed by motion .. * Most promin ently, there is a left forami nal disc protru katlyn at L4-5 with modera te left-s ided neural forami nal narrow ing and deflec tion of the exitin g left L4 nerve root. * A left forami nal annula r fissur e is noted at L5-S1, with mild left-s ided neural forami nal narrow ing. Electr onical ly Signed By: Mayte Hoffmann MD [facility] [address], [place], [address], 04/17/2024 10:59:19 Result Notes Documentation Provider Name and Address Organization Details Recorded Time Xr, Knee, 4 Or More View : [email or web address]? Encrypted=bqXnNcuJS2sQrsL Uv6g%8HJMkePbanv3mnmn%2Fg 7ABm0kxHfgX9hLqVUqcvHs1Kd UAYlNifDPF4jHgYSfbe96i714 4NG8OsaMlABjPtFqGsnQxS Not Available [facility] 04/15/2024 09:24:44 Xr, Knee, 4 Or More View : [email or web address]? Encrypted=sbCeFeoAL7aBfwL Uv6g%0EMVrxCxyme2vwit%2Fg 0DTx3tqEvsA0iBmTOfhsYc2Zh TKXhOxtXOG5uNxCLoee08g789 0AN6KtqDaSPkGgLlOxpTqG Not Available [facility] 04/15/2024 09:24:46 Mri, Lumbar Spine, W/o Contrast : [facility] Accession Number: [id number] Patient Name: Norberto Mc Date of : 1980 Date of Exam: 04-13-2024 Referring Physician: Fidel Blankenship [address] [place] [address] Exam: MR Lumbar Spine (C-) CPT 01848 Room Description: [facility] 3T MR Lumbar Spine (C-) CPT 19654 INDICATION: M54.16 - Radiculopathy, lumbar region, evaluate for radiculopathy. TECHNIQUE: Multiplanar, multisequence MRI of the lumbar spine was performed without intravenous contrast. COMPARISON: None. FINDINGS: Multiple images are degraded by motion artifact, which may obscure fine detail. NUMBERING: The study assumes 5 wmz-wdz-jkwskot lumbar type vertebral bodies. ALIGNMENT, VERTEBRAE, MARROW, AND DISCS: Mild levoconvex lumbar curvature is noted. Sagittal alignment is maintained. Vertebral body heights are preserved. There is no significant marrow signal abnormality. There is mild disc desiccation at L3-4 and L5-S1, with minimal loss of disc space. CONUS: The conus is normal in signal and contour, with normal level of termination at L1-2. PARASPINAL TISSUES: The paraspinal soft tissues are unremarkable. DETAILED FINDINGS BY LEVEL: T12-L1: No significant disc herniation, central stenosis, or neural foraminal narrowing. L1-L2: No significant disc herniation, central stenosis, or neural foraminal narrowing. L2-L3: No significant disc herniation, central stenosis, or neural foraminal narrowing. L3-L4: Mild broad-based disc bulge. No significant central stenosis. Mild bilateral neural foraminal narrowing. L4-L5: Broad-based disc bulge with superimposed left foraminal protrusion. No significant central stenosis. Mild right and moderate left neural foraminal narrowing with deflection of the exiting left L4 nerve root. L5-S1: Mild broad-based disc bulge with left foraminal annular fissure. Mild facet spurring. No significant central stenosis. Mild left and no right neural foraminal narrowing. IMPRESSION: Degenerative changes of the lumbar spine as above, somewhat degraded by motion.. * Most prominently, there is a left foraminal disc protrusion at L4-5 with moderate left-sided neural foraminal narrowing and deflection of the exiting left L4 nerve root. * A left foraminal annular fissure is noted at L5-S1, with mild left-sided neural foraminal narrowing. Electronically Signed By: Jo trinidad [facility] 04/17/2024 10:59:19 Problems Name Problem SNOMED Code Status Onset Date Resolution Date Notes Provider Name and Address Organization Details Recorded Time Chondromala zhen of left patella [id number] 06 Active 2023 Norm Finley PA-C [address] [facility] [address], [place], [address] [place] [address] - [facility] 4 06:24:17 Problem Notes None recorded. Medical Equipment None Reported. Allergies No known drug allergies Medications Name Sig Start Date Stop Date Status Note LastModified by Organization Details LastModified Time ketoconazole 2 % shampoo APPLY TOPICALLY 2 TIMES A WEEK active Not Available Not Available No t Available tizanidine 2 mg tablet TAKE 1 TABLET BY MOUTH THREE TIMES A DAY FOR 7 DAYS active Not Available Not Available N ot Available Medrol (Lyle) 4 mg tablets in a dose pack take as directed 2023 active Not Available Not Available Not Avai lable prednisone 20 mg tablet TAKE 3 TABLETS BY MOUTH FOR 5 DAYS TAKE 2 TABLETS FOR 4 DAYS TAKE 1 TABLET FOR 3 DAYS active Not Available Not Available N ot Available sumatriptan 50 mg tablet TAKE 1 TABLET BY MOUTH ONCE, IF NEEDED FOR MIGRAINE, MAY REPEAT IN 2 HOURS IF NO RELIEF active Not Available Not Available No t Available ibuprofen 600 mg tablet TAKE 1 TABLET BY MOUTH EVERY 6 HOURS NEEDED FOR PAIN active Not Available Not Available No t Available morphine 15 mg immediate release tablet TAKE 15 MG BY MOUTH EVERY 6 HOURS NEEDED FOR PAIN active Not Available Not Available No t Available diazepam 5 mg tablet TAKE 1 TABLET ORALLY EVERY 8 HOURS NEEDED FOR BREAKTHROUG H PAIN active Not Available Not Available No t Available oxycodone 5 mg tablet TAKE 1 TABLET BY MOUTH EVERY 6 HOURS NEEDED FOR PAIN active Not Available Not Available No t Available Vitals Date Recorded Body height Body mass index (BMI) Body weight Provider Name and Address Organization Details Last Updated DateTime 04/01/2024 182.88 cm 23.7 kg/m2 03831.66 g DONTRELL THOMASROXIEJOSÉ [facility] 04/01/2024 13:26:12 Date Recorded Body height Body mass index (BMI) Body weight Provider Name and Address Organization Details Last Updated DateTime 04/15/2024 182.88 cm 23.7 kg/m2 87657.66 g Norm Finley PA-C [address] [place] [address], [address], [facility] 04/15/2024 09:10:55 Date Recorded Body height Body mass index (BMI) Body weight Provider Name and Address Organization Details Last Updated DateTime 05/14/2024 182.88 cm 23.7 kg/m2 08746.66 g Ariel Patel [facility] 05/14/2024 14:44:30 Social History None recorded. Functional Status None recorded. Mental Status None recorded. Family History Nothing Reported. Medical History Condition Response Headaches Y Past Encounters Encounter ID Performer Location Encounter Start Date Encounter Closed Date Diagnosis/Indication Diagnosis SNOMED-CT Code Diagnosis ICD10 Code Diagnosis IMO Codes Diagnosis Note [id number] Fidel Blankenship MD [place] [address] [place] [address] 04/01/2024 13:20:22 04/29/2024 11:30:17 Lumbar radiculopathy 277570365 M54.16 [id number] CHRISTEL Marino [address] [place] [address] 04/15/2024 08:58:54 05/02/2024 14:17:17 Chondromalacia of left patella [id number] 37948 M22.42 [id number] Fidel Blankenship MD [facility] [address] [place] [address] 05/14/2024 14:35:30 06/06/2024 08:11:02 Lumbar radiculopathy 993784281 M54.16 25076 Health Concerns Section Related Observation LastModified by Organization Detai ls LastModified Time None Recorded Concern Status LastModified by Organization Details LastModified Time None Recorded Advance Directives Directive None Recorded Payers Insurance Date Sequence Insurance Name Policy Number Policy Farah Covered Member ID Farah Member ID Guarantor Name 06/06/2024 1 [place] [facility] (MEDICAID) Norberto Mc [id number] Norberto Mc Notes Date Note Type Note Provider Name and Address Organization Details Recorded Time 04/01/2024 text/html ROS as noted in the HPI HPI: 43-year-old man reports ongoing debilitating back and radiating left leg pain. Present over the last 3 weeks time. Steroids have been helpful. He still works for [employer]. He has developed a limp and significant left lower extremity dysfunction as a result. No bowel or bladder complaints no right leg pain PFMSH and ROS has been reviewed, updated and is located in the patient's chart. TREATMENT: Medication management. 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 Fidel Blankenship MD [address], [place], [address], [facility] - [facility] 04/01/2024 17:09:31 04/15/2024 text/html I am seeing the patient today under the supervision of Dr. Peña who was available but who did not see the patient. HPI: Patient is a 43-year-old male who presents to the office with a chief complaint of left knee pain. Patient also has additional complaints of radicular low back pain he has been evaluated by Dr. Blankenship has had an MRI scan scheduled follow-up care in the upcoming weeks. The patient reports symptoms are predominantly anterior lateral aspect of the knee exacerbated when getting up from a sitting position, he denies any traumatic injury. Past history notable for previous knee arthroscopy by Dr. Tj Casillas at [facility] 2 years ago. Past family, medical, social history and review of systems has been reviewed, updated and signed by me and is located in the patient s chart. PHYSICAL EXAMINATION: The patient is well appearing and in no apparent distress. Alert and oriented x3. Gait is antalgic. Examination of the left knee demonstrates range of motion 0-130 , trace effusion, pain with palpation along the medial michael-joint, no lateral joint tenderness, mild patellofemoral crepitance, negative Ned, no laxity valgus or varus stressing at 0 and 30 , extension mechanism intact. Peripheral, vascular, lymphatic examination, skin, neurological, coordination, reflexes, sensation are within normal limits. X-RAY REPORT: X-rays were ordered, obtained and independently reviewed today at [facility] of the left knee findings include: 4 views of the left knee demonstrate good joint space preservation with normal patella alignment, no osteochondral defects appreciated. IMPRESSION: #1. Predominant anterior knee pain with secondary radicular component. PLAN: Treatment options discussed ultimately I have recommended a course of conservative treatment I would not recommend any aggressive surgical intervention with regards to his knee I have referred him to outpatient physical therapy address patellar component and some of his low back issues. I have renewed his Medrol Dosepak we talked about associated risk factors of taking these medications while initiating physical therapy and he will keep his follow-up appoint with Dr. Blankenship. [facility] speech recognition chalk cutter software was used to create portions of this document. An attempt at proofreading has been made to minimize errors. Please call for corrections. Norm Finley PA-C [address], [place], [address], [facility] - [facility] 04/15/2024 09:59:47 05/14/2024 text/html ROS as noted in the HPI HPI: 43-year-old man with ongoing back and radiating left leg pain returns for recheck. Last visit we ordered an MRI to evaluate for compressive lesion and he returns for review of that study. Symptoms unchanged. Present over the last 3 months. 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 Notable for far lateral disc herniation L4-5 left and associated L4 nerve root impingement consistent with his ongoing symptoms. PHYSICAL EXAMINATION: Fidel Blankenship MD [address] [place] [address] [address], [place], [address], [facility] - [facility] 05/14/2024 16:38:40
--- OUTSIDE RECORDS SUMMARY | 2025-04-04 07:08 | XMS_ITS | Clinical Summary ---
Author Organization [employer] Address [address] [place] [address] [address] [place] [address] Care Team Providers Care Caseworker Name Role Phone Luda Mccoy MD Primary Care Provide r Allergies No known active allergies Medications predniSONE (Deltasone) 20 MG tabletIndication s:Pain in both knees, unspecified chronicity TAKE 2 TABLETS BY MOUTH 10 tablet 3 Active Diclofenac Sodium 1 % creamIndications :Pain in both knees, unspecified chronicity Apply 3 times per day as needed for knee pain 60 g 2 3 Active SUMAtriptan (Imitrex) 50 MG tabletIndication s:Chronic migraine without aura without status migrainosus, not intractable Take 1 tablet (50 mg) by mouth 1 (one) time if needed for migraine for up to 54 doses. May repeat dose once in 2 hours if no relief. Do not exceed 2 doses in 24 hours. 9 tablet 5 4 Active ibuprofen 600 MG tabletIndication s:Chronic bilateral low back pain, unspecified whether sciatica present Take 1 tablet (600 mg) by mouth every 6 (six) hours if needed for mild pain. 30 tablet 2 4 Active Clobetasol Propionate (Clobex) 0.05 % shampooIndicatio ns:Seborrheic dermatitis Every other day 118 mL 3 4 Active ketoconazole (Nizoral) 2 % shampooIndicatio ns:Seborrheic dermatitis Apply topically 2 (two) times a week. 120 mL 3 4 Active Active Problems Problem Noted Date Diagnosed Date Right inguinal hernia 01/22/2024 Assessment & Plan (01/22/2024 4:33 PM EDT): Surgery referral done Chronic bilateral low back pain 07/24/2023 Anosmia 07/24/2023 Assessment & Plan (01/22/2024 4:32 PM EDT): ENT referral printed for patient Assessment & Plan (07/24/2023 1:21 PM EST): I will refer patient to ENT Seborrheic dermatitis 07/24/2023 Assessment & Plan (01/22/2024 4:33 PM EDT): Dermatology referral done for follow up Health care maintenance 07/24/2023 Assessment & Plan (07/24/2023 1:22 PM EST): See HPI Blurred vision, bilateral 07/24/2023 Assessment & Plan (01/22/2024 4:33 PM EDT): Referral printed and given to patient Migraine 03/01/2018 Assessment & Plan (01/22/2024 4:34 PM EDT): I advise to avoid migraine triggers like red wine, chocolate, cheese, strong perfumes C/w same medication Assessment & Plan (07/24/2023 1:22 PM EST): I advise to avoid migraine triggers like red wine, chocolate, cheese, strong perfumes Encounters Date Type Department Care Team Description 02/24/2025 Patient Outreach [facility] [address] [place] [id number] Luda Mccoy MD Care Coordination (C3/LUNA Reddy, initial outreach_declined ) 02/24/2025 Patient Outreach [facility] [address] [place] [address] Luda Mccoy MD Care Coordination (C3KAREEN/LUNA Reddy, Chart review ) 02/24/2025 Patient Outreach [facility] [address] [facility] [place] [address] Luda Mccoy MD Care Coordination (C3CM- chart review) 02/24/2025 Patient Outreach [facility] [address] [place] [address] Luda Mccoy MD from Last 3 Months Immunizations Immunization Administration Dates Next Due Tdap 06/08/2018 Social History Tobacco Use Types Packs/Day Years Used Date Smoking Tobacco: Never Passive Smoke Exposure: Never Smokeless Tobacco: Never Tobacco Cessation:Counseling Given: Not Answered Alcohol Use Standard Drinks/Week Comments Never 0 (1 standard drink = 0.6 oz pur e alcohol) Depression Answer Date Recorded Patient Health Questionnaire-9 Score 0 07/24/2023 Patient Health Questionnaire-9 Score 0 07/24/2023 Last PHQ-9: Questionnaire Data Not on file 0 07/24/2023 Housing Stability Answer Date Recorded What is your housing situation today? I have omid hernández 07/24/[address] you li ve. Do you have problems with any of the following? None of the above 07/24/2023 Food Insecurity Answer Date Recorded Within the past 12 months, y ou worried that your food would run out before you got money to buy more: Never True 05/24/2023 Within the past 12 months,th e food you bought just didn't last and you didn't have enough money to get more: Never True Transportation Answer Date Recorded In the past 12 months, has l ack of transportation kept you from medical appts, meetings, work or from getting things needed for daily living? No 05/24/2023 Utilities Answer Date Recorded In the past 12 months, has t he electric, gas, oil or water company threatened to shut off services in your home? No 05/24/2023 Depression Answer Date Recorded Patient Health Questionnaire-2 Score 0 07/24/2023 Sex and Gender Information Value Date Recorded Sex Assigned at Male 03/28/2022 10:15 AM EDT Legal Sex Male 10:15 AM EDT Gender Identity Male 06/21/2022 9:13 PM EST Sexual Orientation Don't know 03/28/2022 10 :15 AM EDT Last Filed Vital Signs Vital Sign Reading Time Taken Comments Blood Pressure 110/60 04/12/2024 9:17 AM EST Pulse 64 04/12/2024 9:17 AM EST Temperature 36.2 C (97.1 F) 04/12/2024 9:17 AM EST Respiratory Rate 17 04/12/2024 9:17 AM EST Oxygen Saturation 99% 01/22/2024 10:11 AM EDT Inhaled Oxygen Concentration - - Weight 79.7 kg (175 lb 9.6 oz) 04/12/2024 9:17 A M EST Height 182.9 cm (6') 01/22/2024 10:11 AM EDT Body Mass Index 23.82 01/22/2024 10:11 AM EDT Plan of Treatment Health Maintenance Due Date Last Done Comments CT Colonography 1979 Colonoscopy 1979 Colorectal Cancer Screening 1979 FIT DNA/Cologuard 1979 FIT 1979 FOBT 1979 HIV Screening 1979 Lipid Panel 1979 Sigmoidoscopy 1979 Disability Screening 1979 Alcohol/Substance Use Screening 1991 Family Planning (PISQ) 12/17/1994 HPV Vaccines (1 - Male 3-dos e series) 12/17/1994 Hepatitis C Screening 12/17/1997 Hepatitis B Vaccines (1 of 3 - 19+ 3-dose series) 12/17/1998 Depression Screening 07/24/2024 07/24/2023, 07/24/2023 SDOH Screening 07/24/2024 07/24/2023 COVID-19 Vaccine (1 - 2023-2 5 season) 2025 Influenza Vaccine (#1) 2025 Tobacco Screening 04/12/2025 04/12/2024 DTaP/Tdap/Td Vaccines (2 - T d or Tdap) 06/08/2028 06/08/2018 Zoster Vaccines (1 of 2) 12/17/2029 RSV Patients and Patients Aged 60 years or older (1 - 1-dose 75+ series) 12/17/2054 HIB Vaccines Aged Out No longer eligi ble based on patient's age to complete this topic Hepatitis A Vaccines Aged Out No long er eligible based on patient's age to complete this topic IPV Vaccines Aged Out No longer eligi ble based on patient's age to complete this topic Meningococcal B Vaccine Aged Out No l onger eligible based on patient's age to complete this topic Meningococcal Vaccine Aged Out No madi kevin eligible based on patient's age to complete this topic Pneumococcal Vaccine: Pediatrics (0 to 5 Years) and At-Risk Patients (6 to 49) Years Aged Out No longer eligible b ased on patient's age to complete this topic RSV under 20 months Aged Out No longe r eligible based on patient's age to complete this topic Rotavirus Vaccines Aged Out No longer eligible based on patient's age to complete this topic [place] [address] [place] [address] C3 Care Teams Caseworker Relationship Specialty Start Date End Date Luda Mccoy MD [address] [place] [id number] PCP - General Family Medicine 02/15/18
--- OUTSIDE RECORDS SUMMARY | 2025-04-04 07:08 | XMS_ITS | Data Portability ---
Author Organization [place] - [facility], All[facility] Address [address] [place] [phone] Care Team Providers Care Coding Spec Name Role Phone [facility] [place] Referring Provider Assessment Encounter Date Assessment Date Assessment LastModified by Organization Details LastModified Time 02/08/2024 02/08/2024 Patient describes several year history of fluctuating sense of smell with occasional phantosmia. Nasal endoscopy was benign with no evidence of nasal polyps, sinusitis or lesions. 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 Also discussed safety issues associated with smoke detectors, spoiled food. Given the duration his current ability to smell is likely stable and unlikely to resolve with time. [email or web address] Not available 02/08/2024 13:30:30 Plan of Treatment Reminders Order Date Submit Date Provider Last Modified By Organization Details Last Modified Time Details Appointments None record ed. Lab None record ed. Referral None record ed. Procedures None record ed. Surgeries None record ed. Imaging None record ed. Medication Orders None record ed. Patient TargetsNo targets recorded. Patient InstructionsNo instructions recorded. Reason for Referral None Reported. 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 Procedures Surgical History Date Name Laterality Status Provider Name and Address Organization Details Recorded Time NasalEndosc opy_DP completed ROSITA DURON MD [address] [place] [address], [phone], [facility] - [facility] 02/08/2024 13:29:14 hernia repair completed Lucrecia Sanchez [place] - [facility] 02/08/2024 13:07:09 Imaging Results None recorded. Procedure Notes None recorded. Medical Equipment None Reported. Allergies No known drug allergies Medications Name Sig Start Date Stop Date Status Note LastModified by Organization Details LastModified Time ketoconazole 2 % shampoo APPLY TOPICALLY 2 TIMES A WEEK active Not Available Not Available No t Available sumatriptan 50 mg tablet TAKE 1 TABLET BY MOUTH ONCE, IF NEEDED FOR MIGRAINE, MAY REPEAT IN 2 HOURS IF NO RELIEF active Not Available Not Available No t Available ibuprofen 600 mg tablet TAKE 1 TABLET BY MOUTH EVERY 6 HOURS NEEDED FOR PAIN active Not Available Not Available No t Available Vitals None Recorded Social History None recorded. Functional Status None recorded. Mental Status None recorded. Family History Nothing Reported. Medical History Condition Response Migraines Y Anxiety Y Depression Y Past Encounters Encounter ID Performer Location Encounter Start Date Encounter Closed Date Diagnosis/Indication Diagnosis SNOMED-CT Code Diagnosis ICD10 Code Diagnosis IMO Codes Diagnosis Note [id number] ROSITA DURON MD [facility] [address] [phone] 02/08/2024 12:38:29 02/08/2024 13:29:40 Disorder of smell 126001828 R43.9 Health Concerns Section Related Observation LastModified by Organization Detai ls LastModified Time None Recorded Concern Status LastModified by Organization Details LastModified Time None Recorded Advance Directives Directive None Recorded Payers Insurance Date Sequence Insurance Name Policy Number Policy Farah Covered Member ID Farah Member ID Guarantor Name 04/05/2024 1 [place] [facility] Norberto Mc [id number] Norberto Mc Notes Date Note Type Note Provider Name and Address Organization Details Recorded Time 02/08/2024 text/html ROS as noted in the HPI abnormal sense of smellfeels his ability to smell fluctuates, at night he loses ability, but then it comes back during the dayonset associated with COVID infection around 2020 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
--- OUTSIDE RECORDS SUMMARY | 2025-04-04 07:08 | XMS_ITS | Clinical Summary ---
Author Organization [facility] Address [address] [place] [address] Care Team Providers Care Traveling Inventory Associate Name Role Phone Unavailable Primary Care Provider Unavailabl e Social History Tobacco Use Types Packs/Day Years Used Date Smoking Tobacco: Never Assessed Sex and Gender Information Value Date Recorded Sex Assigned at Not on file Legal Sex Male 10:04 AM EST Gender Identity Not on file Sexual Orientation Not on file Plan of Treatment Health Maintenance Due Date Last Done Comments DTaP,Tdap,and Td Vaccines (1 - Tdap) 12/17/1998 Hepatitis B Vaccines (1 of 3 - 19+ 3-dose series) 12/17/1998 HPV Vaccines (1 - 3-dose SCD M series) 12/17/2006 Depression Screening 05/29/2024 COVID-19 Vaccine (1 - 2023-2 5 season) 2025 Influenza Vaccine (#1) 2025 RSV Immunization Adult Patie nts (1 - 1-dose 75+ series) 12/17/2054 HIB Vaccines Aged Out No longer eligi ble based on patient's age to complete this topic Hepatitis A Vaccines Aged Out No long er eligible based on patient's age to complete this topic IPV Vaccines Aged Out No longer eligi ble based on patient's age to complete this topic MMR Vaccines Aged Out No longer eligi ble based on patient's age to complete this topic Meningococcal ACWY Vaccine Aged Out N o longer eligible based on patient's age to complete this topic Meningococcal B Vaccine Aged Out No l onger eligible based on patient's age to complete this topic Pneumococcal Vaccine: Pediat rics (0 to 5 Years) and At-Risk Patients (6 to 49 Years) Aged Out No longer eligible b ased on patient's age to complete this topic RSV Immunization Patients Un adali 20 months Aged Out No longer eligible b ased on patient's age to complete this topic Varicella Vaccines Aged Out No longer eligible based on patient's age to complete this topic
[2025-04-04] MEDS: iohexoL 350 MG/ML 100 ML INFUS..BTL IV (07:55)
--- NOTE | 2025-04-04 08:03 | PC.NURSE ---
assumed care of pt at 0645. pt a&ox4. vss and up to date. 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 pt presents to the ED c/o nonradiating epigastric pain w/ associated n/v x 2000 x last night. pt reports waking up around 0300 this am d/t increased pain and n/v. presented to the ER. 20gIV in the left AC. labs obtained/sent to lab. IVF/medication/abx infusing per provider order. pt otherwise returned from CT - pending CT results. on RA w/o difficulty. no sob/wob noted. respirations even/unlabored. bedside for support. plan of care ongoing. call rosas placed within reach.
[2025-04-04 08:07] LABS: COVID-19 Test Negative (Negative); IDNOW Serial# 6674DD1D
[2025-04-04 08:09] LABS: IDNOW Serial# 58CA691E; Influenza B2 Negative (Negative)
[2025-04-04 08:32] LABS: Reflex Lactate? Lactic Acid Added
--- NOTE | 2025-04-04 08:50 | PC.NURSE ---
pt reporting increased abd pain despite previous medication administration. MD notified/aware. additional medication administered. effectiveness pending. urine specimen obtained/sent to lab. repeat lactic level otherwise pending to be drawn - will complete s/p IVF bolus. plan of care ongoing.
[2025-04-04 08:54] LABS: Appearance Urine Clear; Glucose Urine UA Negative (Negative); PH 7.5 (5.0-9.0); Specific Gravity - Urine >= 1.030 (1.005-1.025); UMIC TRIGGER UACC YES
[2025-04-04 09:04] LABS: Cannabinoid Screen Urine POSITIVE (Not Detect)
[2025-04-04 09:33] LABS: ~Lactic Acid-LAB USE ONLY 2.6 mmol/L (0.5-2.0)
[2025-04-04 11:14] LABS: Reflex Lactate? 2 Y
--- NOTE | 2025-04-04 11:44 | PC.NURSE ---
repeat lactic not needed per MD.
== END 2025-04-04 11:59 | disposition home or self-care (01) ==
PROVIDERS: Emergency Provider Emergency Medicine Emergency Medical Services
DX: N20.0 Calculus of kidney (principal); R11.2 Nausea with vomiting, unspecified; E87.21 Acute metabolic acidosis; M62.838 Other muscle spasm; F41.9 Anxiety disorder, unspecified; R10.13 Epigastric pain; F12.90 Cannabis use, unspecified, uncomplicated; Z79.899 Other long term (current) drug therapy; Z51.81 Encounter for therapeutic drug level monitoring; Z11.52 Encounter for screening for COVID-19
CPT/HCPCS: 36415; 74177; 80053; 80307; 81001; 82550; 83605; 83690; 85025; 87040; 87502; 87635; 99285; J1171; J1885; J2250; J2405; J2543; Q9967

== ENCOUNTER → 2025-04-04 06:36 | Outpatient (BNV) | payer SELFPAY | PROVIDERS: Emergency Provider Emergency Medicine Emergency Medical Services; Visit Provider Radiology Diagnostic Radiology | DX: N20.0 Calculus of kidney (principal); K44.9 Diaphragmatic hernia without obstruction or gangrene | CPT/HCPCS: 74177 ==